=== PATIENT | male | born 1935 | race Caucasian/White ===

== ENCOUNTER 2020-12-19 04:13 | Inpatient (IN) | payer OTHER, MEDICARE, MEDICAID ==
[2020-12-19] MEDS ORDERED: cefTRIAXone 1 GM in Sodium Chloride 0.9% 100 ML IV ONE (05:03)
[2020-12-19] MEDS: Sodium Chloride 0.9% 10 ML Syringe FLUSH PRN ×8 (05:11→17:40)
--- NOTE | 2020-12-19 05:24 | EDM.PDOC ---
<Jose LuisVicki delaneyGet - Last Filed: 12/19/20 06:20> ED HPI GENERAL MEDICAL PROBLEM - General Chief Complaint: Respiratory Problem Stated Complaint: SOB Time Seen by Provider: 12/19/20 04:20 - Related Data Allergies Allergy/AdvReac Type Severity Reaction Status Date / Time No Known Allergies Allergy Verified 12/19/20 05:07 Home Meds: Home Meds Mirtazapine [Remeron] 30 mg PO BEDTIME 08/11/13 [History] Acetaminophen 650 mg PO Q12HR 12/19/20 [History] Budesonide [Pulmicort] 0.5 mg NEB Q4HR 12/19/20 [History] Doxycycline Hyclate 100 mg PO BID 12/19/20 [History] Furosemide [Lasix] 40 mg PO DAILY 12/19/20 [History] L.acidoph,Paracasei, B.lactis [Probiotic] 1 each PO DAILY 12/19/20 [History] Loperamide HCl [Imodium A-D] 2 - 4 mg PO ASDIRECTED PRN 12/19/20 [History] Morphine [Morphine 20 MG/ML Soln] 5 mg BUCCAL TID 12/19/20 [History] Morphine [Morphine 20 MG/ML Soln] 5 mg PO Q30M PRN 12/19/20 [History] Pectin [Throat Drops] 6 mg MM Q2HR PRN 12/19/20 [History] Potassium Chloride 10 meq PO DAILY 12/19/20 [History] Sennosides [Senna] 8.6 mg PO DAILY PRN 12/19/20 [History] Sodium Chloride 1 gm PO Q12HR 12/19/20 [History] Sodium Phosphate,[place]-Dibasic [Enema Ready To Use] 133 ml RC DAILY PRN 12/19/20 [History] Triamcinolone Acetonide [Triamcinolone Acetonide 0.1% Crm] 1 applic TOP TID PRN 12/19/20 [History] bisacodyL [Bisacodyl] 5 - 10 mg PO DAILY PRN 12/19/20 [History] cefTRIAXone [Rocephin] 1 gm IM DAILY 12/19/20 [History] polyethylene glycoL 3350 [MiraLAX] 17 gm PO Q2D 12/19/20 [History] predniSONE 5 mg PO DAILY 12/19/20 [History] predniSONE 20 mg PO DAILY 12/19/20 [History] Departure - Departure Disposition: Admitted As Inpatient 66 Clinical Impression: Pneumonia - Discharge Information <Gurpreet Weems - Last Filed: 12/19/20 08:28> ED HPI GENERAL MEDICAL PROBLEM - General Source of Information: Reports: Patient, EMS, Family, RN History Limitations: Reports: No Limitations - History of Present Illness INITIAL COMMENTS - FREE TEXT/NARRATIVE: Pt. presents to ER with decreased O2 saturation, decreased level of consciousness, shortness of breath, and fatigue. He is a resident at the [facility]. Pt. is currently being treated with IM rocephin, doxycycline, and kenalog for presumed pneumonia. Staff states that tonight he was taking his oxygen off. He is on O2 per NC at 3L/min. His RA O2 sat. tonight without O2 was 65%. Staff noted that his speech was garbled and he was resistive to evaluation. Daughter states that she talked to the patient yesterday and noticed that he sounded quite fatigued with slurred speech. She states that she has not been able to see him much due to the pandemic, but she states that she noticed he had facial droop at [facility]. She states that he has also been complaining of decreased function in his L hand, and stated that he has been having a hard time grasping. This was brought to the attention of staff of the halfway, and they stated to the daughter that they hadn't noticed this. Pt. has not had any head trauma. He is quite upset and resistive to care. Pt. was listed as a code 1 on his halfway chart. In talking with the daughter, she does not want CPR or intubation. Onset: Today Onset Date: 12/19/20 Location: Reports: Generalized Social & Family History - Tobacco Use Tobacco Use Status *Q: Unknown Ever Used Tobacco ED ROS GENERAL - Review of Systems Review Of Systems: See Below (Much of his ROS is unobtainable due to pt. current level of mentation.) Constitutional: Reports: Fever, Malaise, Weakness, Fatigue, Decreased Appetite HEENT: Reports: Other (L sided facial droop, noted by daughter several weeks ago.) Respiratory: Reports: Shortness of Breath, Cough, Other (See HPI) Cardiovascular: Reports: No Symptoms Endocrine: Reports: No Symptoms GI/Abdominal: Reports: No Symptoms : Reports: No Symptoms Musculoskeletal: Reports: No Symptoms Skin: Reports: No Symptoms Neurological: Reports: Other (L sided facial droop, problems using L side according to daughter.) Psychiatric: Reports: Agitation, Confusion Hematologic/Lymphatic: Reports: No Symptoms Immunologic: Reports: No Symptoms ED EXAM, GENERAL - Physical Exam Exam: See Below Exam Limited By: No Limitations General Appearance: Alert, WD/WN, No Apparent Distress Throat/Mouth: Normal Inspection Head: Atraumatic, Normocephalic Neck: Normal Inspection, Non-Tender Respiratory/Chest: No Accessory Muscle Use, Chest Non-Tender, Other (decreased BS with crackles bilaterally in the bases) Cardiovascular: Normal Peripheral Pulses, Regular Rate, Rhythm, No Edema, No Gallop, No JVD, No Murmur GI/Abdominal: Soft, Non-Tender, No Distention, No Mass (Male) Exam: Deferred Rectal (Males) Exam: Deferred Back Exam: Normal Inspection, Full Range of Motion Extremities: Non-Tender, No Pedal Edema Neurological: Other (Confused, L sided facial droop. No pronator drift. No drift in lower extremities.) Psychiatric: Anxious Skin Exam: Warm, Dry, Other (numerous actinic keratoses) Course - Vital Signs Last Recorded V/S: Last Vital Signs Temp 36.1 C 12/19/20 07:40 Pulse 71 12/19/20 07:15 Resp 16 12/19/20 07:33 BP 107/38 L 12/19/20 07:15 Pulse Ox 99 12/19/20 07:46 - Orders/Labs/Meds Orders: Active Orders 24 hr Category Date Time Status Cardiac Monitoring [RC] CONTINUOUS Care 12/19/20 04:29 Active EKG Documentation Completion [RC] ASDIRECTED Care 12/19/20 04:29 Active Oxygen Therapy [RC] PRN Care 12/19/20 04:29 Active Peripheral IV Care [RC] . DIRECTED Care 12/19/20 04:29 Active Chest 1V Frontal [CR] Stat Exams 12/19/20 04:29 Taken Head wo Cont [CT] Stat Exams 12/19/20 05:16 Taken CULTURE BLOOD [BC] Stat Lab 12/19/20 04:45 Received CULTURE BLOOD [BC] Stat Lab 12/19/20 04:45 Received CULTURE URINE [RM] Stat Lab 12/19/20 08:00 Received UA W/MICROSCOPIC [URIN] Stat Lab 12/19/20 08:00 Received Sodium Chloride 0.9% [Saline Flush] Med 12/19/20 04:27 Active 10 ml FLUSH ASDIRECTED PRN Blood Culture x2 Reflex Set [OM.PC] Stat Oth 12/19/20 04:29 Ordered Isolation [COMM] Routine Oth 12/19/20 04:32 Active Peripheral IV Insertion Adult [OM.PC] Routine Oth 12/19/20 04:29 Ordered EKG 12 Lead [EK] Stat Ther 12/19/20 04:27 Ordered Medication Orders Sodium Chloride (Sodium Chloride 0.9% 10 Ml Syringe) 10 ml FLUSH ASDIRECTED PRN PRN Reason: Keep Vein Open Last Admin: 12/19/20 07:17 Dose: 10 ml Documented by: Admin: 12/19/20 07:16 Dose: 10 ml Documented by: Admin: 12/19/20 05:11 Dose: 10 ml Documented by: NICOLE Labs: Laboratory Tests 12/19/20 12/19/20 12/19/20 Range/Units 04:51 04:51 04:51 WBC 9.7 (4.0-10.2) K/uL RBC 3.80 L (4.33-5.41) M/uL Hgb 12.0 L (13.1-16.8) g/dL Hct 39.8 (39.0-49.0) % MCV 104.7 H (84.0-98.0) fL MCH 31.6 (28.2-33.3) pg MCHC 30.2 L (31.7-36.0) g/dL RDW 13.1 (11.2-14.1) % Plt Count 209 (150-350) K/uL Neut % (Auto) 87.1 H (45.0-80.0) % Lymph % (Auto) 6.9 L (10.0-50.0) % [place] % (Auto) 5.7 (2.0-14.0) % Eos % (Auto) 0.2 (0.0-5.0) % Baso % (Auto) 0.1 (0.0-2.0) % Neut # (Auto) 8.43 H (1.40-7.00) K/uL Lymph # (Auto) 0.67 (0.50-3.50) K/uL [place] # (Auto) 0.55 (0.00-1.00) K/uL Eos # (Auto) 0.02 (0.00-0.50) K/uL Baso # (Auto) 0.01 (0.00-0.20) K/uL PT (9.5-12.0) SEC INR ABG pH (7.35-7.45) ABG pCO2 (35-45) mmHG ABG pO2 (80-105) mmHG ABG HCO3 (22-26) mmol/L ABG Total CO2 (23-27) mmol/L ABG O2 Saturation (95-98) % ABG Base Excess (-2-3) mmol/L O2 Delivery Device Sodium 140 (136-145) mmol/L Potassium 4.8 (3.5-5.1) mmol/L Chloride 97 L (98-107) mmol/L Carbon Dioxide 41.4 H* (21.0-32.0) mmol/L BUN 27 H (7-18) mg/dL Creatinine 0.67 (0.51-1.17) mg/dL Est Cr Clr Drug Dosing 72.74 mL/min Estimated GFR (MDRD) > 60 mL/min Glucose 152 H (70-99) mg/dL Lactic Acid 1.5 (0.4-2.0) mmol/L Calcium 9.3 (8.5-10.1) mg/dL Magnesium 1.9 (1.8-2.4) mg/dL Total Bilirubin 0.4 (0.2-1.0) mg/dL AST 14 L (15-37) U/L ALT 20 (12-78) U/L Alkaline Phosphatase 87 (46-116) IU/L Troponin I 0.000 (0.000-0.056) ng/mL C-Reactive Protein 11.6 H (<=0.9) mg/dL NT-Pro-B Natriuret Pep 298 H (0-125) pg/mL Total Protein 7.5 (6.4-8.2) g/dL Albumin 3.4 (3.4-5.0) g/dL SARS-CoV-2 RNA ([place]) (NEGATIVE) 12/19/20 12/19/2021 Range/Units 04:51 04:51 06:10 WBC (4.0-10.2) K/uL RBC (4.33-5.41) M/uL Hgb (13.1-16.8) g/dL Hct (39.0-49.0) % MCV (84.0-98.0) fL MCH (28.2-33.3) pg MCHC (31.7-36.0) g/dL RDW (11.2-14.1) % Plt Count (150-350) K/uL Neut % (Auto) (45.0-80.0) % Lymph % (Auto) (10.0-50.0) % [place] % (Auto) (2.0-14.0) % Eos % (Auto) (0.0-5.0) % Baso % (Auto) (0.0-2.0) % Neut # (Auto) (1.40-7.00) K/uL Lymph # (Auto) (0.50-3.50) K/uL [place] # (Auto) (0.00-1.00) K/uL Eos # (Auto) (0.00-0.50) K/uL Baso # (Auto) (0.00-0.20) K/uL PT 9.4 L (9.5-12.0) SEC INR 0.9 ABG pH 7.31 L (7.35-7.45) ABG pCO2 88 H* (35-45) mmHG ABG pO2 42 L* (80-105) mmHG ABG HCO3 43.7 H (22-26) mmol/L ABG Total CO2 43 H (23-27) mmol/L ABG O2 Saturation 68 L (95-98) % ABG Base Excess 13 H (-2-3) mmol/L O2 Delivery Device Nasal cannula Sodium (136-145) mmol/L Potassium (3.5-5.1) mmol/L Chloride (98-107) mmol/L Carbon Dioxide (21.0-32.0) mmol/L BUN (7-18) mg/dL Creatinine (0.51-1.17) mg/dL Est Cr Clr Drug Dosing mL/min Estimated GFR (MDRD) mL/min Glucose (70-99) mg/dL Lactic Acid (0.4-2.0) mmol/L Calcium (8.5-10.1) mg/dL Magnesium (1.8-2.4) mg/dL Total Bilirubin (0.2-1.0) mg/dL AST (15-37) U/L ALT (12-78) U/L Alkaline Phosphatase (46-116) IU/L Troponin I (0.000-0.056) ng/mL C-Reactive Protein (<=0.9) mg/dL NT-Pro-B Natriuret Pep (0-125) pg/mL Total Protein (6.4-8.2) g/dL Albumin (3.4-5.0) g/dL SARS-CoV-2 RNA ([place]) Negative (NEGATIVE) Meds: Medications Generic Name Dose Route Start Last Admin Trade Name Freq PRN Reason Stop Dose Admin Sodium Chloride 10 ml 12/19/20 04:27 12/19/20 07:17 Sodium Chloride 0.9% 10 Ml Syringe FLUSH 10 ml ASDIRECTED PRN Administration Keep Vein Open Discontinued Medications Generic Name Dose Route Start Last Admin Trade Name Freq PRN Reason Stop Dose Admin Haloperidol Lactate 1 mg 12/19/20 06:59 12/19/20 07:16 Haloperidol Lactate 5 Mg/Ml Sdv IVPUSH 12/19/20 07:00 1 mg ONETIME ONE Administration Ceftriaxone Sodium 1 gm/ 100 mls @ 200 mls/hr 12/19/20 05:03 12/19/20 05:10 Sodium Chloride IV 12/19/20 05:32 200 mls/hr ONETIME ONE Administration Lorazepam 0.5 mg 12/19/20 05:25 12/19/20 05:29 Lorazepam 2 Mg/Ml Sdv IVPUSH 12/19/20 05:26 0.5 mg ONETIME ONE Administration Lorazepam 1 mg 12/19/20 07:00 12/19/20 07:15 Lorazepam 2 Mg/Ml Sdv IVPUSH 12/19/20 07:01 1 mg ONETIME ONE Administration - Re-Assessments/Exams Free Text/Narrative Re-Assessment/Exam: Pt. was examined. Please see above. Pt. was exhibiting signs of stroke. It is unclear when specifically these symptoms started. Daughter reports facial droop over Easter and problems with L sided upper extremity function over a week ago. Stroke code was not called. Pt. was given 1000 mg rocephin IV (he had been given 1000mg IM at the halfway at 1999 this past evening. Pt. required a small dose of ativan for agitation to obtain a CT scan of his he ad. Discussed initial findings at length with daughter November prior to her arrival at [place] (she lives about an hour away in [place]). She has changed his code status to 2, with no intubation or CPR. Departure - Departure Time of Disposition: 06:00 Sepsis Event Note (ED) - Evaluation Sepsis Screening Result: Possible Severe Sepsis Risk - Focused Exam Vital Signs: Vital Signs Temp Temp Pulse Resp BP Pulse Ox Pulse Ox 12/19/20 07:46 99 12/19/20 07:40 36.1 C 97 12/19/20 07:33 16 94 L 12/19/20 07:30 98 12/19/20 07:29 98 12/19/20 07:15 71 20 107/38 L 91 L 12/19/20 06:41 99 132/58 L 88 L 12/19/20 06:00 89 22 H 143/72 H 92 L 12/19/20 05:45 85 127/91 H 90 L 12/19/20 04:15 36.2 C 89 25 H 136/59 L 99 - My Orders Last 24 Hours: My Active Orders 12/19/20 04:27 Sodium Chloride 0.9% [Saline Flush] 10 ml FLUSH ASDIRECTED PRN EKG 12 Lead [EK] Stat 12/19/20 04:29 Cardiac Monitoring [RC] CONTINUOUS EKG Documentation Completion [RC] ASDIRECTED Oxygen Therapy [RC] PRN Peripheral IV Care [RC] . DIRECTED Chest 1V Frontal [CR] Stat Blood Culture x2 Reflex Set [OM.PC] Stat Peripheral IV Insertion Adult [OM.PC] Routine 12/19/20 04:32 Isolation [COMM] Routine 12/19/20 04:45 CULTURE BLOOD [BC] Stat CULTURE BLOOD [BC] Stat 12/19/20 05:16 Head wo Cont [CT] Stat 12/19/20 08:00 CULTURE URINE [RM] Stat UA W/MICROSCOPIC [URIN] Stat - Assessment/Plan Admission H&P: Please use this note as an admission H&P Last 24 Hours: My Active Orders 12/19/20 04:27 Sodium Chloride 0.9% [Saline Flush] 10 ml FLUSH ASDIRECTED PRN EKG 12 Lead [EK] Stat 12/19/20 04:29 Cardiac Monitoring [RC] CONTINUOUS EKG Documentation Completion [RC] ASDIRECTED Oxygen Therapy [RC] PRN Peripheral IV Care [RC] . DIRECTED Chest 1V Frontal [CR] Stat Blood Culture x2 Reflex Set [OM.PC] Stat Peripheral IV Insertion Adult [OM.PC] Routine 12/19/20 04:32 Isolation [COMM] Routine 12/19/20 04:45 CULTURE BLOOD [BC] Stat CULTURE BLOOD [BC] Stat 12/19/20 05:16 Head wo Cont [CT] Stat 12/19/20 08:00 CULTURE URINE [RM] Stat UA W/MICROSCOPIC [URIN] Stat Plan: Pt. care was assumed at [address] Clarke. Please refer to his note regarding CT report, final lab findings, and final disposition of this patient.
[2020-12-19] MEDS ORDERED: LORazepam 2 MG/ML SDV IVPUSH ONE ×2 (05:25→07:00)
[2020-12-19 05:39] LABS: CHLORIDE,CL 97 mmol/L (98-107); SODIUM,NA 140 mmol/L (136-145)
--- NOTE | 2020-12-19 06:38 | PCM.SN.2 ---
- Free Text/Narrative Note: The patient's care was transferred to n[place] shortly prior to admission. CT scan of the head without contrast shows no acute changes consistent with CVA, cerebral hemorrhage, etc. Chronic microvascular changes were noted. Various therapeutic options were once again discussed with the patient's daughter, November, who wishes to maintain patient's comfort care status with no transfer to [place] for further evaluation, including MRI of the brain, hospitalization at the [facility] in [place], etc. Emergency room note from Gurpreet Weems, still needs to be completed, however history, physical exam, blood work, etc. were reviewed by me prior to patient's admission. 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 Mild left lower lobe atelectasis versus beginning pulmonary infiltrates. Patient will be admitted to inpatient/acute care with initiation of IV Lasix therapy, additional IV Cipro therapy, etc. Note that the patient refuses to keep his telemetry on with this to be discontinued at this time. The patient's daughter is in agreement with this treatment plan. Vital signs and clinical exam were stable at time of admission.
[2020-12-19] MEDS ORDERED: Haloperidol Lactate 5 MG/ML SDV IVPUSH ONE (06:59)
--- NOTE | 2020-12-19 08:27 | EDM.PDOC ---
ED HPI GENERAL MEDICAL PROBLEM - General Chief Complaint: Respiratory Problem Stated Complaint: SOB Time Seen by Provider: 12/19/20 06:10 Source of Information: Reports: Patient, EMS, Family, RN History Limitations: Reports: No Limitations - History of Present Illness INITIAL COMMENTS - FREE TEXT/NARRATIVE: Pt. presents to ER with decreased O2 saturation, decreased level of con sciousness, shortness of breath, and fatigue. He is a resident at the [facility]. Pt. is currently being treated with IM rocephin, doxycycline, and kenalog for presumed pneumonia. Staff states that tonight he was taking his oxygen off. He is on O2 per NC at 3L/min. His RA O2 sat. tonight without O2 was 65%. Staff noted that his speech was garbled and he was resistive to evaluation. Daughter states that she talked to the patient yesterday and noticed that he sounded quite fatigued with slurred speech. She states that she has not been able to see him much due to the pandemic, but she states that she noticed he had facial droop at [facility]. She states that he has also been complaining of decreased function in his L hand, and stated that he has been having a hard time grasping. This was brought to the attention of staff [facility], and they stated to the daughter that they hadn't noticed this. Pt. has not had any head trauma. He is quite upset and resistive to care. Pt. was listed as a code 1 on his [facility]iary chart. In talking with the daughter, she does not want CPR or intubation. Onset: Today Onset Date: 12/19/20 Location: Reports: Generalized - Related Data Allergies Allergy/AdvReac Type Severity Reaction Status Date / Time No Known Allergies Allergy Verified 12/19/20 05:07 Home Meds: Home Meds Mirtazapine [Remeron] 30 mg PO BEDTIME 08/11/13 [History] Acetaminophen 650 mg PO Q12HR 12/19/20 [History] Budesonide [Pulmicort] 0.5 mg NEB Q4HR 12/19/20 [History] Doxycycline Hyclate 100 mg PO BID 12/19/20 [History] Furosemide [Lasix] 40 mg PO DAILY 12/19/20 [History] L.acidoph,Paracasei, B.lactis [Probiotic] 1 each PO DAILY 12/19/20 [History] Loperamide HCl [Imodium A-D] 2 - 4 mg PO ASDIRECTED PRN 12/19/20 [History] Morphine [Morphine 20 MG/ML Soln] 5 mg BUCCAL TID 12/19/20 [History] Morphine [Morphine 20 MG/ML Soln] 5 mg PO Q30M PRN 12/19/20 [History] Pectin [Throat Drops] 6 mg MM Q2HR PRN 12/19/20 [History] Potassium Chloride 10 meq PO DAILY 12/19/20 [History] Sennosides [Senna] 8.6 mg PO DAILY PRN 12/19/20 [History] Sodium Chloride 1 gm PO Q12HR 12/19/20 [History] Sodium Phosphate,Eaton-Dibasic [Enema Ready To Use] 133 ml RC DAILY PRN 12/19/20 [History] Triamcinolone Acetonide [Triamcinolone Acetonide 0.1% Crm] 1 applic TOP TID PRN 12/19/20 [History] bisacodyL [Bisacodyl] 5 - 10 mg PO DAILY PRN 12/19/20 [History] cefTRIAXone [Rocephin] 1 gm IM DAILY 12/19/20 [History] polyethylene glycoL 3350 [MiraLAX] 17 gm PO Q2D 12/19/20 [History] predniSONE 5 mg PO DAILY 12/19/20 [History] predniSONE 20 mg PO DAILY 12/19/20 [History] Social & Family History - Tobacco Use Tobacco Use Status *Q: Unknown Ever Used Tobacco ED ROS GENERAL - Review of Systems Review Of Systems: Comprehensive ROS is negative, except as noted in HPI. Reason Not Obtained: As obtained by Gurpreet Weems PA-C ED EXAM, GENERAL - Physical Exam Exam: See Below (Exam by Gurpreet Weems PA-C) Free Text/Narrative:: Pt. presents to ER with decreased O2 saturation, decreased level of consci ousness, shortness of breath, and fatigue. He is a resident at the [facility]. Pt. is currently being treated with IM rocephin, doxycycline, and kenalog for presumed pneumonia. Staff states that tonight he was taking his oxygen off. He is on O2 per [place] at 3L/min. His RA O2 sat. tonight without O2 was 65%. Staff noted that his speech was garbled and he was resistive to evaluation. Daughter states that she talked to the patient yesterday and noticed that he sounded quite fatigued with slurred speech. She states that she has not been able to see him much due to the pandemic, but she states that she noticed he had facial droop at [place]. She states that he has also been complaining of decreased function in his L hand, and stated that he has been having a hard time grasping. This was brought to the attention of staff of the penitentiary, and they stated to the daughter that they hadn't noticed this. Pt. has not had any head trauma. He is quite upset and resistive to care. Pt. was listed as a code 1 on his penitentiary chart. In talking with the daughter, she does not want CPR or intubation. Exam Limited By: No Limitations General Appearance: Alert, WD/WN, No Apparent Distress Throat/Mouth: Normal Inspection Head: Atraumatic, Normocephalic Neck: Normal Inspection, Non-Tender Respiratory/Chest: No Accessory Muscle Use, Chest Non-Tender, Other (decreased BS with crackles bilaterally in the bases) Cardiovascular: Normal Peripheral Pulses, Regular Rate, Rhythm, No Edema, No Gallop, No JVD, No Murmur GI/Abdominal: Soft, Non-Tender, No Distention, No Mass Back Exam: Normal Inspection, Full Range of Motion Extremities: Non-Tender, No Pedal Edema Neurological: Other (Confused, L sided facial droop. No pronator drift. No drift in lower extremities.) Psychiatric: Anxious Skin Exam: Warm, Dry, Other (numerous actinic keratoses) Course - Vital Signs Last Recorded V/S: Last Vital Signs Temp 36.1 C 12/19/20 07:40 Pulse 71 12/19/20 07:15 Resp 16 12/19/20 07:33 BP 107/38 L 12/19/20 07:15 Pulse Ox 99 12/19/20 07:46 Vital Signs - 24 hr 12/19/20 12/19/20 12/19/20 04:15 05:45 06:00 Temperature [ 36.2 C Axillary] Temperature [ Temporal] Pulse, 89 85 89 Peripheral [ Pulse Oximetry] Respiratory 25 H 22 H Rate Blood Pressure 136/59 L 127/91 H 143/72 H [Right Upper Arm] O2 Sat by Pulse 99 90 L 92 L Oximetry O2 Sat by Pulse Oximetry [ Nasal Cannula] 12/19/20 12/19/20 12/19/20 06:41 07:15 07:29 Temperature [ Axillary] Temperature [ Temporal] Pulse, 99 71 Peripheral [ Pulse Oximetry] Respiratory 20 Rate Blood Pressure 132/58 L 107/38 L [Right Upper Arm] O2 Sat by Pulse 88 L 91 L 98 Oximetry O2 Sat by Pulse Oximetry [ Nasal Cannula] 12/19/20 12/19/20 12/19/20 07:30 07:33 07:40 Temperature [ Axillary] Temperature [ 36.1 C Temporal] Pulse, Peripheral [ Pulse Oximetry] Respiratory 16 Rate Blood Pressure [Right Upper Arm] O2 Sat by Pulse 98 94 L 97 Oximetry O2 Sat by Pulse Oximetry [ Nasal Cannula] 12/19/20 07:46 Temperature [ Axillary] Temperature [ Temporal] Pulse, Peripheral [ Pulse Oximetry] Respiratory Rate Blood Pressure [Right Upper Arm] O2 Sat by Pulse Oximetry O2 Sat by Pulse 99 Oximetry [ Nasal Cannula] - Orders/Labs/Meds Orders: Active Orders 24 hr Category Date Time Status EKG Documentation Completion [RC] ASDIRECTED Care 12/19/20 04:29 Active Peripheral IV Care [RC] . DIRECTED Care 12/19/20 04:29 Active Chest 1V Frontal [CR] Stat Exams 12/19/20 04:29 Taken Head wo Cont [CT] Stat Exams 12/19/20 05:16 Taken CULTURE BLOOD [BC] Stat Lab 12/19/20 04:45 Received CULTURE BLOOD [BC] Stat Lab 12/19/20 04:45 Received CULTURE URINE [RM] Stat Lab 12/19/20 08:00 Received Sodium Chloride 0.9% [Saline Flush] Med 12/19/20 04:27 Active 10 ml FLUSH ASDIRECTED PRN Blood Culture x2 Reflex Set [OM.PC] Stat Oth 12/19/20 04:29 Ordered Isolation [COMM] Routine Oth 12/19/20 04:32 Active Peripheral IV Insertion Adult [OM.PC] Routine Oth 12/19/20 04:29 Ordered EKG 12 Lead [EK] Stat Ther 12/19/20 04:27 Ordered Medication Orders Mirtazapine (Mirtazapine 30 Mg Tab) 30 mg PO BEDTIME JB Non-Formulary Medication (L.Acidoph,ParacaseiLindaLactis [Probiotic]) 1 each PO DAILY [facility] Non-Formulary Medication (Sennosides [Senna]) 8.6 mg PO DAILY PRN PRN Reason: Constipation Polyethylene Glycol (Polyethylene Glycol 3350 Powder 17 Gm Packet) 17 gm PO Q2D JB Prednisone (Prednisone 20 Mg Tab) 20 mg PO DAILY JB Sodium Chloride (Sodium Chloride 0.9% 10 Ml Syringe) 10 ml FLUSH ASDIRECTED PRN PRN Reason: Keep Vein Open Last Admin: 12/19/20 07:17 Dose: 10 ml Documented by: Admin: 12/19/20 07:16 Dose: 10 ml Documented by: Admin: 12/19/20 05:11 Dose: 10 ml Documented by: NICOLE Sodium Chloride (Sodium Chloride 1 Gm Tab) 1 gm PO Q12HR JB Triamcinolone Acetonide (Triamcinolone Acetonide 0.1% Crm 15 Gm Tube) gm TOP TID PRN PRN Reason: Itching Labs: Laboratory Tests 12/19/20 12/19/20 12/19/20 Range/Units 04:51 04:51 04:51 WBC 9.7 (4.0-10.2) K/uL RBC 3.80 L (4.33-5.41) M/uL Hgb 12.0 L (13.1-16.8) g/dL Hct 39.8 (39.0-49.0) % MCV 104.7 H (84.0-98.0) fL MCH 31.6 (28.2-33.3) pg MCHC 30.2 L (31.7-36.0) g/dL RDW 13.1 (11.2-14.1) % Plt Count 209 (150-350) K/uL Neut % (Auto) 87.1 H (45.0-80.0) % Lymph % (Auto) 6.9 L (10.0-50.0) % Eaton % (Auto) 5.7 (2.0-14.0) % Eos % (Auto) 0.2 (0.0-5.0) % Baso % (Auto) 0.1 (0.0-2.0) % Neut # (Auto) 8.43 H (1.40-7.00) K/uL Lymph # (Auto) 0.67 (0.50-3.50) K/uL Eaton # (Auto) 0.55 (0.00-1.00) K/uL Eos # (Auto) 0.02 (0.00-0.50) K/uL Baso # (Auto) 0.01 (0.00-0.20) K/uL PT (9.5-12.0) SEC INR ABG pH (7.35-7.45) ABG pCO2 (35-45) mmHG ABG pO2 (80-105) mmHG ABG HCO3 (22-26) mmol/L ABG Total CO2 (23-27) mmol/L ABG O2 Saturation (95-98) % ABG Base Excess (-2-3) mmol/L O2 Delivery Device Sodium 140 (136-145) mmol/L Potassium 4.8 (3.5-5.1) mmol/L Chloride 97 L (98-107) mmol/L Carbon Dioxide 41.4 H* (21.0-32.0) mmol/L BUN 27 H (7-18) mg/dL Creatinine 0.67 (0.51-1.17) mg/dL Est Cr Clr Drug Dosing 72.74 mL/min Estimated GFR (MDRD) > 60 mL/min Glucose 152 H (70-99) mg/dL Lactic Acid 1.5 (0.4-2.0) mmol/L Calcium 9.3 (8.5-10.1) mg/dL Magnesium 1.9 (1.8-2.4) mg/dL Total Bilirubin 0.4 (0.2-1.0) mg/dL AST 14 L (15-37) U/L ALT 20 (12-78) U/L Alkaline Phosphatase 87 (46-116) IU/L Troponin I 0.000 (0.000-0.056) ng/mL C-Reactive Protein 11.6 H (<=0.9) mg/dL NT-Pro-B Natriuret Pep 298 H (0-125) pg/mL Total Protein 7.5 (6.4-8.2) g/dL Albumin 3.4 (3.4-5.0) g/dL Specimen Type Urine Color Urine Appearance Urine pH (5.0-9.0) Ur Specific [place] (1.005-1.030) Urine Protein (NEGATIVE) mg/dL Urine Glucose (UA) (NEGATIVE) mg/dL Urine Ketones (NEGATIVE) mg/dL Urine Occult Blood (NEGATIVE) Urine Nitrite (NEGATIVE) Urine Bilirubin (NEGATIVE) Urine Urobilinogen (0.2-1.0) E.U./dL Ur Leukocyte Esterase (NEGATIVE) Urine RBC /HPF Urine WBC /HPF Ur Epithelial Cells /LPF Urine Bacteria (NONE TO FEW) /HPF SARS-CoV-2 RNA (SOLOMON) (NEGATIVE) 12/19/20 12/19/20 12/19/20 Range/Units 04:51 04:51 06:10 WBC (4.0-10.2) K/uL RBC (4.33-5.41) M/uL Hgb (13.1-16.8) g/dL Hct (39.0-49.0) % MCV (84.0-98.0) fL MCH (28.2-33.3) pg MCHC (31.7-36.0) g/dL RDW (11.2-14.1) % Plt Count (150-350) K/uL Neut % (Auto) (45.0-80.0) % Lymph % (Auto) (10.0-50.0) % Eaton % (Auto) (2.0-14.0) % Eos % (Auto) (0.0-5.0) % Baso % (Auto) (0.0-2.0) % Neut # (Auto) (1.40-7.00) K/uL Lymph # (Auto) (0.50-3.50) K/uL Eaton # (Auto) (0.00-1.00) K/uL Eos # (Auto) (0.00-0.50) K/uL Baso # (Auto) (0.00-0.20) K/uL PT 9.4 L (9.5-12.0) SEC INR 0.9 ABG pH 7.31 L (7.35-7.45) ABG pCO2 88 H* (35-45) mmHG ABG pO2 42 L* (80-105) mmHG ABG HCO3 43.7 H (22-26) mmol/L ABG Total CO2 43 H (23-27) mmol/L ABG O2 Saturation 68 L (95-98) % ABG Base Excess 13 H (-2-3) mmol/L O2 Delivery Device Nasal cannula Sodium (136-145) mmol/L Potassium (3.5-5.1) mmol/L Chloride (98-107) mmol/L Carbon Dioxide (21.0-32.0) mmol/L BUN (7-18) mg/dL Creatinine (0.51-1.17) mg/dL Est Cr Clr Drug Dosing mL/min Estimated GFR (MDRD) mL/min Glucose (70-99) mg/dL Lactic Acid (0.4-2.0) mmol/L Calcium (8.5-10.1) mg/dL Magnesium (1.8-2.4) mg/dL Total Bilirubin (0.2-1.0) mg/dL AST (15-37) U/L ALT (12-78) U/L Alkaline Phosphatase (46-116) IU/L Troponin I (0.000-0.056) ng/mL C-Reactive Protein (<=0.9) mg/dL NT-Pro-B Natriuret Pep (0-125) pg/mL Total Protein (6.4-8.2) g/dL Albumin (3.4-5.0) g/dL Specimen Type Urine Color Urine Appearance Urine pH (5.0-9.0) Ur Specific [place] (1.005-1.030) Urine Protein (NEGATIVE) mg/dL Urine Glucose (UA) (NEGATIVE) mg/dL Urine Ketones (NEGATIVE) mg/dL Urine Occult Blood (NEGATIVE) Urine Nitrite (NEGATIVE) Urine Bilirubin (NEGATIVE) Urine Urobilinogen (0.2-1.0) E.U./dL Ur Leukocyte Esterase (NEGATIVE) Urine RBC /HPF Urine WBC /HPF Ur Epithelial Cells /LPF Urine Bacteria (NONE TO FEW) /HPF SARS-CoV-2 RNA ([place]) Negative (NEGATIVE) 12/19/20 Range/Units 08:00 WBC (4.0-10.2) K/uL RBC (4.33-5.41) M/uL Hgb (13.1-16.8) g/dL Hct (39.0-49.0) % MCV (84.0-98.0) fL MCH (28.2-33.3) pg MCHC (31.7-36.0) g/dL RDW (11.2-14.1) % Plt Count (150-350) K/uL Neut % (Auto) (45.0-80.0) % Lymph % (Auto) (10.0-50.0) % Eaton % (Auto) (2.0-14.0) % Eos % (Auto) (0.0-5.0) % Baso % (Auto) (0.0-2.0) % Neut # (Auto) (1.40-7.00) K/uL Lymph # (Auto) (0.50-3.50) K/uL Eaton # (Auto) (0.00-1.00) K/uL Eos # (Auto) (0.00-0.50) K/uL Baso # (Auto) (0.00-0.20) K/uL PT (9.5-12.0) SEC INR ABG pH (7.35-7.45) ABG pCO2 (35-45) mmHG ABG pO2 (80-105) mmHG ABG HCO3 (22-26) mmol/L ABG Total CO2 (23-27) mmol/L ABG O2 Saturation (95-98) % ABG Base Excess (-2-3) mmol/L O2 Delivery Device Sodium (136-145) mmol/L Potassium (3.5-5.1) mmol/L Chloride (98-107) mmol/L Carbon Dioxide (21.0-32.0) mmol/L BUN (7-18) mg/dL Creatinine (0.51-1.17) mg/dL Est Cr Clr Drug Dosing mL/min Estimated GFR (MDRD) mL/min Glucose (70-99) mg/dL Lactic Acid (0.4-2.0) mmol/L Calcium (8.5-10.1) mg/dL Magnesium (1.8-2.4) mg/dL Total Bilirubin (0.2-1.0) mg/dL AST (15-37) U/L ALT (12-78) U/L Alkaline Phosphatase (46-116) IU/L Troponin I (0.000-0.056) ng/mL C-Reactive Protein (<=0.9) mg/dL NT-Pro-B Natriuret Pep (0-125) pg/mL Total Protein (6.4-8.2) g/dL Albumin (3.4-5.0) g/dL Specimen Type Urincath Urine Color Rosalia Urine Appearance Slightly cloudy Urine pH 6.0 (5.0-9.0) Ur Specific [place] 1.025 (1.005-1.030) Urine Protein 30 H (NEGATIVE) mg/dL Urine Glucose (UA) Negative (NEGATIVE) mg/dL Urine Ketones Trace H (NEGATIVE) mg/dL Urine Occult Blood Negative (NEGATIVE) Urine Nitrite Negative (NEGATIVE) Urine Bilirubin Negative (NEGATIVE) Urine Urobilinogen 0.2 (0.2-1.0) E.U./dL Ur Leukocyte Esterase Negative (NEGATIVE) Urine RBC Not seen /HPF Urine WBC Not seen /HPF Ur Epithelial Cells Not seen /LPF Urine Bacteria Not seen (NONE TO FEW) /HPF SARS-CoV-2 RNA ([place]) (NEGATIVE) Meds: Medications Generic Name Dose Route Start Last Admin Trade Name Freq PRN Reason Stop Dose Admin Mirtazapine 30 mg 12/19/20 20:00 Mirtazapine 30 Mg Tab PO BEDTIME JB Non-Formulary Medication 1 each 12/19/20 08:45 L.Acidoph,Paracasei, B.Lactis [Probiotic] PO DAILY JB Non-Formulary Medication 8.6 mg 12/19/20 08:42 Sennosides [Senna] PO DAILY PRN Constipation Polyethylene Glycol 17 gm 12/19/20 08:42 Polyethylene Glycol 3350 Powder 17 Gm Packet PO Q2D JB Prednisone 20 mg 12/20/20 08:00 Prednisone 20 Mg Tab PO DAILY JB Sodium Chloride 10 ml 12/19/20 04:27 12/19/20 07:17 Sodium Chloride 0.9% 10 Ml Syringe FLUSH 10 ml ASDIRECTED PRN Administration Keep Vein Open Sodium Chloride 1 gm 12/19/20 20:00 Sodium Chloride 1 Gm Tab PO Q12HR [facility] Triamcinolone Acetonide gm 12/19/20 08:42 Triamcinolone Acetonide 0.1% Crm 15 Gm Tube TOP TID PRN Itching Discontinued Medications Generic Name Dose Route Start Last Admin Trade Name Freq PRN Reason Stop Dose Admin Haloperidol Lactate 1 mg 12/19/20 06:59 12/19/20 07:16 Haloperidol Lactate 5 Mg/Ml Sdv IVPUSH 12/19/20 07:00 1 mg ONETIME ONE Administration Ceftriaxone Sodium 1 gm/ 100 mls @ 200 mls/hr 12/19/20 05:03 12/19/20 05:10 Sodium Chloride IV 12/19/20 05:32 200 mls/hr ONETIME ONE Administration Lorazepam 0.5 mg 12/19/20 05:25 12/19/20 05:29 Lorazepam 2 Mg/Ml Sdv IVPUSH 12/19/20 05:26 0.5 mg ONETIME ONE Administration Lorazepam 1 mg 12/19/20 07:00 12/19/20 07:15 Lorazepam 2 Mg/Ml Sdv IVPUSH 12/19/20 07:01 1 mg ONETIME ONE Administration - Radiology Interpretation Free Text/Narrative:: See simple provider note Departure - Departure Time of Disposition: 08:20 Disposition: Admitted As Inpatient 66 Clinical Impression: COPD, Moderate chronic obstructive pulmonary disease, Confusion, Need for comfort care, Macrocytic anemia Pneumonia Qualifiers: Pneumonia type: due to unspecified organism Laterality: left Lung location: lower lobe of lung Qualified Code(s): J18.9 - Pneumonia, unspecified organism CHF (congestive heart failure) Qualifiers: Heart failure type: unspecified Heart failure chronicity: acute Qualified Code(s): I50.9 - Heart failure, unspecified - Discharge Information *PRESCRIPTION DRUG MONITORING PROGRAM REVIEWED*: Not Applicable *COPY OF PRESCRIPTION DRUG MONITORING REPORT IN PATIENT VIKRAM: Not Applicable Sepsis Event Note (ED) - Evaluation Sepsis Screening Result: No Definite Risk - Focused Exam Vital Signs: Vital Signs Temp Temp Pulse Resp BP Pulse Ox Pulse Ox 12/19/20 07:46 99 12/19/20 07:40 36.1 C 97 12/19/20 07:33 16 94 L 12/19/20 07:30 98 12/19/20 07:29 98 12/19/20 07:15 71 20 107/38 L 91 L 12/19/20 06:41 99 132/58 L 88 L 12/19/20 06:00 89 22 H 143/72 H 92 L 12/19/20 05:45 85 127/91 H 90 L 12/19/20 04:15 36.2 C 89 25 H 136/59 L 99 - Problem List & Annotations (1) Pneumonia SNOMED Code(s): 487340677 Code(s): J18.9 - PNEUMONIA, UNSPECIFIED ORGANISM Status: Acute Priority: High Current Visit: Yes Onset Date: ~12/19/20 Annotation/Comment:: Note previously suspected pneumonia with previous IM Rocephin and oral doxycycline therapy. Additional IV Rocephin given in the emergency room. Patient will receive IV Rocephin, IV Cipro, and IV Flagyl therapy after admission. Attempt to obtain a sputum specimen for culture and sensitivity, however this will be difficult with this patient. Prognosis is extremely guarded. No direct clinical evidence of sepsis with no fever, leukocytosis, lactic acid elevation, etc. Qualifiers: Pneumonia type: due to unspecified organism Laterality: left Lung location: lower lobe of lung Qualified Code(s): J18.9 - Pneumonia, unspecified organism (2) Need for comfort care SNOMED Code(s): 160262646, 326411990 Code(s): IXR8931 - Status: Acute Priority: High Current Visit: Yes Onset Date: 12/19/20 Annotation/Comment:: Initially patient was a full code, however per request of the patient's daughter, November, the patient was placed on comfort care/NO CODE STATUS, including no further transfer to the [facility], etc.. The patient did become extremely agitated in the emergency room and did require IV Ativan and IV Haldol therapy, which will be continued for patient safety and comfort. Secondary to multiple healthcare issues as above his overall prognosis is extremely guarded with patient possibly not surviving this hospitalization. His daughter is aware of this poor prognosis. (3) CHF (congestive heart failure) SNOMED Code(s): 79405976 Code(s): I50.9 - HEART FAILURE, UNSPECIFIED Status: Acute Priority: High Current Visit: Yes Onset Date: 12/19/20 Annotation/Comment:: Patient is a poor historian with no direct evidence of chest pain or anginal type symptoms. Cardiac enzymes will be repeated in the a.m. Changed from oral to IV Lasix therapy with Hunter catheter therapy as needed for accurate I's and O's. Secondary to comfort care status no further work-up, including echocardiogram, etc. Prognosis extremely guarded. Consider MAYLIN inhibitor therapy once patient's response to IV Lasix has been determined. Qualifiers: Heart failure type: unspecified Heart failure chronicity: acute Qualified Code(s): I50.9 - Heart failure, unspecified (4) COPD, Moderate chronic obstructive pulmonary disease SNOMED Code(s): 782013641 Code(s): J44.9 - CHRONIC OBSTRUCTIVE PULMONARY DISEASE, UNSPECIFIED Status: Chronic Priority: High Current Visit: Yes Annotation/Comment:: Mild COPD exacerbation secondary to patient's current probable pneumonia as above. Patient was agitated and needs sedation and will likely not be able to tolerate inhaler therapy. Isolation precautions with initiation of DuoNeb nebulizer treatments, etc. His Pulmicort nebulizer treatments will be held for now secondary to current high-dose oral steroids. His COVID-19 rapid test was negative, although minimize staff exposure to nebulizer therapy. Attempt incentive spirometry, although this will be difficult with this patient. The patient is steroid and O2 dependent with significant hypoxia on room air prior to patient's transfer. Note additional hypercapnia as per ABGs with attempts to decrease his oxygen requirement at this time. DuoNeb (5) Confusion SNOMED Code(s): 956541282 Code(s): R41.0 - DISORIENTATION, UNSPECIFIED Status: Acute Priority: High Current Visit: Yes Onset Date: ~12/19/20 Annotation/Comment:: Confusion secondary either to recent CVA versus current infection. Note negative CT scan of the head as above. Per his daughter's request no further work-up including hospital transfer for MRI of the brain, etc.. Vitamin B12 level, TSH, etc. to be conducted with next set of blood work. Prognosis extremely guarded. Negative UA. (6) Macrocytic anemia SNOMED Code(s): 39192734 Code(s): D53.9 - NUTRITIONAL ANEMIA, UNSPECIFIED Status: Acute Priority: High Current Visit: Yes Onset Date: ~12/19/20 Annotation/Comment:: Further work-up with blood work in the a.m., including vitamin B12 level, etc. - Problem List Review Problem List Initiated/Reviewed/Updated: Yes - Assessment/Plan Admission H&P: Please use this note as an admission H&P Assessment:: As above Plan: As above. Extensive precautions were given to the patient's daughter, who is in agreement with the treatment plan. The patient will require about 3-4 days of inpatient/acute care secondary to multiple health problems as above.
[2020-12-19] MEDS ORDERED: Sennosides 8.6 MG Tab PO PRN (08:42)
[2020-12-19] MEDS ORDERED: Triamcinolone Acetonide 0.1% Crm 15 GM Tube TOP PRN (08:42)
[2020-12-19] MEDS ORDERED: Lactobacillus Rhamnosus GG (Probiotic) Cap PO SCH (08:45)
[2020-12-19] MEDS ORDERED: Polyethylene Glycol 3350 Powder 17 GM Packet PO SCH (09:00)
[2020-12-19] MEDS ORDERED: Acetaminophen 325 MG Tab PO PRN (09:12)
[2020-12-19] MEDS ORDERED: Albuterol/Ipratropium 3.0-0.5 MG/3 ML Neb Soln NEB PRN (09:12)
[2020-12-19] MEDS ORDERED: Sodium Chloride 0.9% 10 ML Syringe FLUSH SCH (09:15)
[2020-12-19] MEDS ORDERED: Furosemide 40 MG/4 ML VIAL IVPUSH SCH (09:30)
[2020-12-19] MEDS: metroNIDAZOLE/Normal Saline 500 MG in Premix Bag 1 BAG IV SCH ×2 (10:27→17:36)
[2020-12-19] MEDS: Bacitracin/Neomycin/Polymyxin B Oint 0.9 GM U/D Packet TOP SCH (11:47)
[2020-12-19] MEDS: Levofloxacin/Dextrose 5%-Water 500 MG in Premix Bag 1 BAG IV SCH (11:52)
[2020-12-19] MEDS: LORazepam 1 MG Tab PO SCH ×3 (12:45→19:44)
[2020-12-19] MEDS: Albuterol/Ipratropium 3.0-0.5 MG/3 ML Neb Soln NEB SCH ×2 (13:20→21:30)
[2020-12-19] MEDS: Enoxaparin 30 MG/0.3 ML Syringe SUBCUT SCH (14:00)
[2020-12-19] MEDS: cefTRIAXone 1 GM in Sodium Chloride 0.9% 100 ML IV SCH (17:06)
[2020-12-19] MEDS: Albuterol 0.083% 2.5 MG/3 ML Neb Soln NEB PRN ×2 (17:36→23:50)
[2020-12-19] MEDS ORDERED: Potassium Chloride 20 MEQ Tab.ER PO SCH (18:00)
[2020-12-19] MEDS ORDERED: Dextromethorphan/guaiFENesin 600-30 MG Tab.ER PO SCH (18:00)
[2020-12-19] MEDS ORDERED: Bisacodyl 10 MG Supp RECTAL PRN (19:52)
[2020-12-19] MEDS ORDERED: methylPREDNISolone Sodium Succinate 125 MG/2 ML SDV IVPUSH ONE (20:00)
[2020-12-19] MEDS ORDERED: Mirtazapine 30 MG Tab PO SCH (20:00)
[2020-12-19] MEDS ORDERED: Sodium Chloride 1 GM Tab PO SCH (20:00)
[2020-12-19] MEDS: Sodium Chloride 0.9% 10 ML Syringe FLUSH SCH (21:30)
[2020-12-19] MEDS: LORazepam 2 MG/ML SDV IVPUSH PRN (23:51)
[2020-12-20] MEDS: metroNIDAZOLE/Normal Saline 500 MG in Premix Bag 1 BAG IV SCH ×3 (00:36→17:02)
[2020-12-20] MEDS: Sodium Chloride 0.9% 10 ML Syringe FLUSH PRN ×7 (00:37→19:27)
[2020-12-20] MEDS: Albuterol/Ipratropium 3.0-0.5 MG/3 ML Neb Soln NEB SCH ×4 (02:23→19:22)
[2020-12-20] MEDS: LORazepam 2 MG/ML SDV IVPUSH PRN ×6 (03:39→19:25)
[2020-12-20] MEDS: cefTRIAXone 1 GM in Sodium Chloride 0.9% 100 ML IV SCH (03:59)
[2020-12-20] MEDS: Bacitracin/Neomycin/Polymyxin B Oint 0.9 GM U/D Packet TOP SCH (07:39)
[2020-12-20] MEDS: Acetaminophen 650 MG Supp RECTAL PRN ×2 (07:39→19:26)
[2020-12-20] MEDS ORDERED: D5 1/2 NS w/ 20 mEq/L KCl 1,000 ML IV SCH (07:45)
[2020-12-20] MEDS ORDERED: predniSONE 20 MG Tab PO SCH (08:00)
[2020-12-20] MEDS ORDERED: Sodium Chloride 0.9% Inhalation Soln 3 ML Neb INH PRN (09:00)
[2020-12-20 09:06] LABS: CHLORIDE,CL 99 mmol/L (98-107); SODIUM,NA 141 mmol/L (136-145)
[2020-12-20] MEDS ORDERED: Furosemide 40 MG/4 ML VIAL IVPUSH SCH (09:30)
--- NOTE | 2020-12-20 09:34 | PCM.PN ---
- General Info Date of Service: 12/20/20 Admission Dx/Problem (Free Text): 1. Aspiration pneumonia 2. CHF 3. Confusion with probable CVA 4. COPD Functional Status: Reports: Pain Controlled. Denies: Tolerating Diet (Attempt with thickened liquid resulted in aspiration with patient not able to tolerate diet or taking oral medications, which were discontinued on 12/19), New Symptoms, Incentive Spirometry (Unable to perform) Pain Score: 0 (Appears comfortable unable to rate) - Review of Systems General: Reports: Fever, Weakness (Left hemiparesisstable), Chills, Night Sweats. Denies: Appetite (Feels hungry however note aspiration as above) HEENT: Reports: No Symptoms Pulmonary: Reports: Shortness of Breath, Cough. Denies: Sputum, Hemoptysis, Wheezing Cardiovascular: Reports: Palpitations. Denies: Edema Gastrointestinal: Reports: No Symptoms Genitourinary: Reports: Incontinence Musculoskeletal: Reports: No Symptoms Skin: Reports: Bruising. Denies: Diaphoresis Neurological: Reports: Confusion (Stable since admission), Difficulty Walking Psychiatric: Reports: Confusion (As above), Agitation (Occasional well- controlled with current medical therapy). Denies: Cravings, Hallucinations - Patient Data Vitals - Most Recent: Last Vital Signs Temp 37.9 C 12/20/20 07:39 Pulse 133 H 12/20/20 03:45 Resp 24 H 12/20/20 03:45 BP 123/87 12/20/20 03:45 Pulse Ox 97 12/20/20 03:45 Vital Signs - 24 hr 12/19/20 12/19/20 12/19/20 14:00 18:11 19:20 Temperature Temperature [ 37.3 C 37.6 C Temporal] Pulse, 78 77 Peripheral [ Pulse Oximetry] Respiratory 20 28 H Rate Blood Pressure 118/47 L 115/49 L [Right Upper Arm] O2 Sat by Pulse 91 L 88 L Oximetry 12/20/20 12/20/20 12/20/20 00:00 03:45 07:39 Temperature 37.9 C Temperature [ 37.2 C 37.7 C Temporal] Pulse, 100 133 H Peripheral [ Pulse Oximetry] Respiratory 35 H 24 H Rate Blood Pressure 135/89 123/87 [Right Upper Arm] O2 Sat by Pulse 78 L 97 Oximetry Weight - Most Recent: 76.204 kg I&O - Last 24 Hours: Intake & Output 12/19/20 12/20/20 12/20/20 22:59 06:59 14:59 Intake Total 30 215 Output Total 300 Balance -270 215 Imaging Impressions - Last 24 Hours: associate medical director shows occasional sinus tachycardia with average heart rate in the 90s to low 100s with no ectopy or arrhythmia. Lab Results Last 24 Hours: Laboratory Results - last 24 hr 12/20/20 12/20/20 Range/Units 07:46 07:46 WBC 5.0 (4.0-10.2) K/uL RBC 3.55 L (4.33-5.41) M/uL Hgb 11.2 L (13.1-16.8) g/dL Hct 36.4 L (39.0-49.0) % MCV 102.5 H (84.0-98.0) fL MCH 31.5 (28.2-33.3) pg MCHC 30.8 L (31.7-36.0) g/dL RDW 13.3 (11.2-14.1) % Plt Count 189 (150-350) K/uL Neut % (Auto) 92.8 H (45.0-80.0) % Lymph % (Auto) 6.0 L (10.0-50.0) % [place] % (Auto) 1.0 L (2.0-14.0) % Eos % (Auto) 0.0 (0.0-5.0) % Baso % (Auto) 0.2 (0.0-2.0) % Neut # (Auto) 4.66 (1.40-7.00) K/uL Lymph # (Auto) 0.30 L (0.50-3.50) K/uL [place] # (Auto) 0.05 (0.00-1.00) K/uL Eos # (Auto) 0.00 (0.00-0.50) K/uL Baso # (Auto) 0.01 (0.00-0.20) K/uL Sodium 141 (136-145) mmol/L Potassium 4.6 (3.5-5.1) mmol/L Chloride 99 (98-107) mmol/L Carbon Dioxide 38.3 H (21.0-32.0) mmol/L BUN 35 H (7-18) mg/dL Creatinine 0.81 (0.51-1.17) mg/dL Est Cr Clr Drug Dosing 60.17 mL/min Estimated GFR (MDRD) > 60 mL/min Glucose 194 H (70-99) mg/dL Calcium 9.3 (8.5-10.1) mg/dL Total Bilirubin 0.3 (0.2-1.0) mg/dL AST 18 (15-37) U/L ALT 20 (12-78) U/L Alkaline Phosphatase 79 (46-116) IU/L Creatine Kinase 53 (26-308) U/L Creatine Kinase Index 3.2 H (0.0-2.5) % CK-MB (CK-2) 1.70 (0.00-3.60) ng/mL Troponin I 0.010 (0.000-0.056) ng/mL NT-Pro-B Natriuret Pep 560 H (0-125) pg/mL Total Protein 6.9 (6.4-8.2) g/dL Albumin 2.9 L (3.4-5.0) g/dL Vitamin B12 239 (193-986) pg/mL TSH, Ultra Sensitive 0.686 (0.358-3.740) mIU/mL Devin Results Last 24 Hours: Microbiology 12/19/20 04:45 Aerobic Blood Culture - Preliminary Blood - Venous - Lab Draw NO GROWTH AFTER 1 DAY Anaerobic Blood Culture - Preliminary NO GROWTH AFTER 1 DAY 12/19/20 04:45 Aerobic Blood Culture - Preliminary Blood - Venous NO GROWTH AFTER 1 DAY Anaerobic Blood Culture - Preliminary NO GROWTH AFTER 1 DAY 12/19/20 04:31 Influenza Type A Antigen Screen - Final Nasopharyngeal Swab NEGATIVE INFLUENZA A VIRUS AG REFERENCE RANGE: NEGATIVE Influenza Type B Antigen Screen - Final NEGATIVE INFLUENZA B VIRUS AG REFERENCE RANGE: NEGATIVE Med Orders - Current: Current Medications Acetaminophen (Acetaminophen 650 Mg Supp) 650 mg RECTAL Q4H PRN PRN Reason: Fever Last Admin: 12/20/20 07:39 Dose: 650 mg Documented by: Albuterol (Albuterol 0.083% 2.5 Mg/3 Ml Neb Soln) 2.5 mg NEB Q2H PRN PRN Reason: Dyspnea Last Admin: 12/19/20 23:50 Dose: 2.5 mg Documented by: Albuterol/Ipratropium (Albuterol/Ipratropium 3.0-0.5 Mg/3 Ml Neb Soln) 3 ml NEB Q4HRRT PRN PRN Reason: Dyspnea Albuterol/Ipratropium (Albuterol/Ipratropium 3.0-0.5 Mg/3 Ml Neb Soln) 3 ml NEB Q6HRRT [facility] Last Admin: 12/20/20 08:01 Dose: 3 ml Documented by: Bisacodyl (Bisacodyl 10 Mg Supp) 10 mg RECTAL DAILY PRN PRN Reason: Constipation Enoxaparin Sodium (Enoxaparin 30 Mg/0.3 Ml Syringe) 30 mg SUBCUT Q24H [facility] Last Admin: 12/19/20 14:00 Dose: 30 mg Documented by: Furosemide (Furosemide 40 Mg/4 Ml Vial) 40 mg IVPUSH DAILY [facility] Haloperidol Lactate (Haloperidol Lactate 5 Mg/Ml Sdv) 1 mg IVPUSH Q8H PRN PRN Reason: Agitation Levofloxacin/Dextrose 500 mg/ (Premix) 100 mls @ 100 mls/hr IV Q24H [facility] Last Admin: 12/19/20 11:52 Dose: 100 mls/hr Documented by: Metronidazole 500 mg/ Premix 100 mls @ 100 mls/hr IV Q8H [facility] Last Admin: 12/20/20 00:36 Dose: 100 mls/hr Documented by: Potassium Chloride/Dextrose/Sod Cl (D5 1/2 Ns W/ 20 Meq/L Kcl) 1,000 mls @ 75 mls/hr IV ASDIRECTED JB Vancomycin HCl 1 gm/ Dextrose/ (Water) 250 mls @ 165 mls/hr IV Q24H [facility] Lorazepam (Lorazepam 2 Mg/Ml Sdv) 1 mg IVPUSH Q2HR PRN PRN Reason: Agitation Last Admin: 12/20/20 07:37 Dose: 1 mg Documented by: Morphine Sulfate (Morphine 2 Mg/Ml Syringe) 2 mg .XX Q2H PRN PRN Reason: Dyspnea Neomycin/Polymyxin/Bacitracin (Bacitracin/Neomycin/Polymyxin B Oint 0.9 Gm U/D Packet) 1 each TOP DAILY [facility] Last Admin: 12/20/20 07:39 Dose: 1 each Documented by: Sodium Chloride (Sodium Chloride 0.9% 10 Ml Syringe) 10 ml FLUSH ASDIRECTED PRN PRN Reason: Keep Vein Open Last Admin: 12/20/20 03:41 Dose: 10 ml Documented by: Sodium Chloride (Sodium Chloride 0.9% 10 Ml Syringe) 10 ml FLUSH Q12H [facility] Last Admin: 12/19/20 21:30 Dose: 10 ml Documented by: Triamcinolone Acetonide (Triamcinolone Acetonide 0.1% Crm 15 Gm Tube) 0 gm TOP TID PRN PRN Reason: Itching Discontinued Medications Acetaminophen (Acetaminophen 325 Mg Tab) 650 mg PO Q4H PRN PRN Reason: Pain/Fever Furosemide (Furosemide 40 Mg/4 Ml Vial) 40 mg IVPUSH Q12H [facility] Last Admin: 12/19/20 10:28 Dose: 40 mg Documented by: Guaifenesin/Dextromethorphan (Dextromethorphan/Guaifenesin 600-30 Mg Tab.Er) 1 tab PO BID [facility] Last Admin: 12/19/20 18:07 Dose: Not Given Documented by: Haloperidol Lactate (Haloperidol Lactate 5 Mg/Ml Sdv) 1 mg IVPUSH ONETIME ONE Stop: 12/19/20 07:00 Last Admin: 12/19/20 07:16 Dose: 1 mg Documented by: Ceftriaxone Sodium 1 gm/ (Sodium Chloride) 100 mls @ 200 mls/hr IV ONETIME ONE Stop: 12/19/20 05:32 Last Admin: 12/19/20 05:10 Dose: 200 mls/hr Documented by: Ceftriaxone Sodium 1 gm/ (Sodium Chloride) 100 mls @ 200 mls/hr IV Q12H [facility] Last Admin: 12/20/20 03:59 Dose: 200 mls/hr Documented by: Lactobacillus Rhamnosus (Lactobacillus Rhamnosus Gg (Probiotic) Cap) 1 cap PO DAILY [facility] Last Admin: 12/19/20 11:06 Dose: Not Given Documented by: Lorazepam (Lorazepam 2 Mg/Ml Sdv) 0.5 mg IVPUSH ONETIME ONE Stop: 12/19/20 05:26 Last Admin: 12/19/20 05:29 Dose: 0.5 mg Documented by: Lorazepam (Lorazepam 2 Mg/Ml Sdv) 1 mg IVPUSH ONETIME ONE Stop: 12/19/20 07:01 Last Admin: 12/19/20 07:15 Dose: 1 mg Documented by: Lorazepam (Lorazepam 1 Mg Tab) 1 mg PO QID [facility] Last Admin: 12/19/20 19:44 Dose: Not Given Documented by: Methylprednisolone Sodium Succinate (Methylprednisolone Sodium Succinate 125 Mg/2 Ml Sdv) 125 mg IVPUSH ONETIME ONE Stop: 12/19/20 20:01 Last Admin: 12/19/20 21:29 Dose: 125 mg Documented by: Mirtazapine (Mirtazapine 30 Mg Tab) 30 mg PO BEDTIME [facility] Last Admin: 12/19/20 19:45 Dose: Not Given Documented by: Polyethylene Glycol (Polyethylene Glycol 3350 Powder 17 Gm Packet) 17 gm PO Q2D [facility] Last Admin: 12/19/20 11:06 Dose: Not Given Documented by: Potassium Chloride (Potassium Chloride 20 Meq Tab.Er) 20 meq PO BID [facility] Last Admin: 12/19/20 18:07 Dose: Not Given Documented by: Prednisone (Prednisone 20 Mg Tab) 20 mg PO DAILY [facility] Stop: 12/24/20 08:01 Senna (Sennosides 8.6 Mg Tab) 8.6 mg PO DAILY PRN PRN Reason: Constipation Sodium Chloride (Sodium Chloride 1 Gm Tab) 1 gm PO Q12HR [facility] Last Admin: 12/19/20 19:45 Dose: Not Given Documented by: Sodium Chloride (Sodium Chloride 0.9% 10 Ml Syringe) 10 ml FLUSH Q12H [facility] Last Admin: 12/19/20 11:07 Dose: Not Given Documented by: - Exam Quality Assessment: Supplemental Oxygen, Urine Catheter, DVT Prophylaxis (Lovenox). No: Central Line/PICC, Skin Breakdown, Restraints General: No Acute Distress, Sedated (But comfortable) HEENT: Pupils Equal, Pupils Reactive, EOMI, Mucous Membr. Moist/[place] Neck: Supple, Trachea Midline, No JVD, No Thyromegaly, Carotid Bruit (Mild bilateral carotid bruits). No: Lymphadenopathy, Thyromegaly Lungs: Rales (Diffuse mild bilateral). No: Rhonchi, Rub, Wheezing Cardiovascular: Regular Rhythm, No Murmurs, Tachycardia. No: Gallops, Rubs GI/Abdominal Exam: Normal Bowel Sounds, Soft, Non-Tender, No Organomegaly, No Distention, No Abnormal Bruit, No Mass, Pelvis Stable. No: Guarding (Male) Exam: Deferred Back Exam: Normal Inspection, Full Range of Motion. No: CVA Tenderness (L), CVA Tenderness (R) Extremities: Normal Inspection. No: Jey's Sign Peripheral Pulses: 2+: Radial (L), Radial (R), Dorsalis Pedis (L), Dorsalis Pedi s (R) Skin: Ecchymosis (Forearm secondary to previous blood draws and IVs) Neurological: No New Focal Deficit, Other (Stable moderate confusion with c urrent sedation secondary to IV medications. Stable left hemiparesis with negative Babinski's) Psy/Mental Status: Agitated (Occasionally but calm at time of exam). No: Hallu cinations, Withdrawal Symptoms #1 Interpretation EKG Date: 12/20/20 Time: 10:13 Rhythm: Other (Sinus tachycardia) Rate (Beats/Min): 101 [place]: Normal (Left) P-Wave: Present QRS: RBBB (0.14 seconds was in a complete right bundle branch block) ST-T: Normal (T wave inversion in leads III and V1 with noisy baseline) QT: Normal CO/PQ Interval: 0.19 seconds Comparison: NA - No Prior EKG EKG Interpretation Comments: 1. No acute ischemic changes 2. Complete right bundle branch block - Patient Data Lab Results Last 24 hrs: Laboratory Results - last 24 hr 12/20/20 12/20/20 Range/Units 07:46 07:46 WBC 5.0 (4.0-10.2) K/uL RBC 3.55 L (4.33-5.41) M/uL Hgb 11.2 L (13.1-16.8) g/dL Hct 36.4 L (39.0-49.0) % MCV 102.5 H (84.0-98.0) fL MCH 31.5 (28.2-33.3) pg MCHC 30.8 L (31.7-36.0) g/dL RDW 13.3 (11.2-14.1) % Plt Count 189 (150-350) K/uL Neut % (Auto) 92.8 H (45.0-80.0) % Lymph % (Auto) 6.0 L (10.0-50.0) % [place] % (Auto) 1.0 L (2.0-14.0) % Eos % (Auto) 0.0 (0.0-5.0) % Baso % (Auto) 0.2 (0.0-2.0) % Neut # (Auto) 4.66 (1.40-7.00) K/uL Lymph # (Auto) 0.30 L (0.50-3.50) K/uL [place] # (Auto) 0.05 (0.00-1.00) K/uL Eos # (Auto) 0.00 (0.00-0.50) K/uL Baso # (Auto) 0.01 (0.00-0.20) K/uL Sodium 141 (136-145) mmol/L Potassium 4.6 (3.5-5.1) mmol/L Chloride 99 (98-107) mmol/L Carbon Dioxide 38.3 H (21.0-32.0) mmol/L BUN 35 H (7-18) mg/dL Creatinine 0.81 (0.51-1.17) mg/dL Est Cr Clr Drug Dosing 60.17 mL/min Estimated GFR (MDRD) > 60 mL/min Glucose 194 H (70-99) mg/dL Calcium 9.3 (8.5-10.1) mg/dL Total Bilirubin 0.3 (0.2-1.0) mg/dL AST 18 (15-37) U/L ALT 20 (12-78) U/L Alkaline Phosphatase 79 (46-116) IU/L Creatine Kinase 53 (26-308) U/L Creatine Kinase Index 3.2 H (0.0-2.5) % CK-MB (CK-2) 1.70 (0.00-3.60) ng/mL Troponin I 0.010 (0.000-0.056) ng/mL NT-Pro-B Natriuret Pep 560 H (0-125) pg/mL Total Protein 6.9 (6.4-8.2) g/dL Albumin 2.9 L (3.4-5.0) g/dL Vitamin B12 239 (193-986) pg/mL TSH, Ultra Sensitive 0.686 (0.358-3.740) mIU/mL Result Diagrams: 12/20/20 07:46 12/20/20 07:46 Devin Results Last 24 hrs: Microbiology 12/19/20 04:45 Aerobic Blood Culture - Preliminary Blood - Venous - Lab Draw NO GROWTH AFTER 1 DAY Anaerobic Blood Culture - Preliminary NO GROWTH AFTER 1 DAY 12/19/20 04:45 Aerobic Blood Culture - Preliminary Blood - Venous NO GROWTH AFTER 1 DAY Anaerobic Blood Culture - Preliminary NO GROWTH AFTER 1 DAY 12/19/20 04:31 Influenza Type A Antigen Screen - Final Nasopharyngeal Swab NEGATIVE INFLUENZA A VIRUS AG REFERENCE RANGE: NEGATIVE Influenza Type B Antigen Screen - Final NEGATIVE INFLUENZA B VIRUS AG REFERENCE RANGE: NEGATIVE Sepsis Event Note - Evaluation Sepsis Screening Result: No Definite Risk - Focused Exam Vital Signs: Vital Signs Temp Temp Pulse Resp BP Pulse Ox 12/20/20 07:39 37.9 C 12/20/20 03:45 37.7 C 133 H 24 H 123/87 97 12/20/20 00:00 37.2 C 100 35 H 135/89 78 L - Problem List & Annotations (1) Pneumonia SNOMED Code(s): 694194941 Code(s): J18.9 - PNEUMONIA, UNSPECIFIED ORGANISM Status: Acute Priority: High Current Visit: Yes Onset Date: ~12/19/20 Qualifiers: Pneumonia type: due to unspecified organism Laterality: left Lung location: lower lobe of lung Qualified Code(s): J18.9 - Pneumonia, unspecified organism Annotation/Comment:: Continued high fever and hypoxia in spite of aggressive triple antibiotic therapy as below. Pharmacy consultation held with Rosalba today with IV Rocephin to be placed with IV vancomycin. Trough vancomycin level shou ld be drawn on 12/22 with additional blood work to be conducted at the same time as per orders by [facility] physician, who assumes care on 12/21. Note likely previous aspiration pneumonia with patient aggressively covered initially with IV Levaquin, IV Rocephin, and IV Flagyl shortly after admission. Note previously suspected pneumonia prior to admission with previous IM Rocephin and oral doxycycline therapy. Additional IV Rocephin was initiated in the emergency room. Lactic acid level was normal on admission and also on 12/20 with no initial clinical evidence of sepsis. Unable to obtain a sputum specimen for culture and sensitivity. Prognosis is extremely guarded with the patient's 2 daughters counseled today concerning the possibility of the patient not surviving this hospitalization especially in light of concomitant CHF, etc. Various therapeutic options were discussed with hospice consultation ordered, which should be continued when the patient is transferred back to [facility] in [place]. Emotional support was provided to the family members. (2) Confusion SNOMED Code(s): 365400750 Code(s): R41.0 - DISORIENTATION, UNSPECIFIED Status: Acute Priority: High Current Visit: Yes Onset Date: ~12/19/20 Annotation/Comment:: Confusion secondary either to recent CVA versus current infection. Note negative CT scan of the head in the emergency room. Per his daughter's request no further work- up, including hospital transfer for MRI of the brain, etc.. Vitamin B12 level, TSH, were conducted on 12/20 with results as above. Prognosis extremely guarded. Negative UA. (3) CVA (cerebral vascular accident) SNOMED Code(s): 497330652 Code(s): I63.9 - CEREBRAL INFARCTION, UNSPECIFIED Status: Acute Priority: High Current Visit: Yes Qualifiers: CVA mechanism: unspecified Qualified Code(s): I63.9 - Cerebral infarction, unspecified Annotation/Comment:: Probable CVA about 1-2 weeks prior to patient's admission with progressive dysarthria, left-sided weakness, confusion, and aspiration. No further work-up per family's request as above. Prognosis poor. (4) Need for comfort care SNOMED Code(s): 897717891, 620662439 Code(s): GZE1160 - Status: Acute Priority: High Current Visit: Yes Onset Date: 12/19/20 Annotation/Comment:: Initially patient was a full code, however per request of the patient's daughter, November, the patient was placed on comfort care/NO CODE STATUS, including no further transfer to the [facility], etc. in the emergency room. The patient did become extremely agitated in the emergency room and did require IV Ativan and IV Haldol therapy, which was continued for patient safety and comfort after admission. Secondary to multiple healthcare issues as above his overall prognosis is extremely guarded with patient possibly not surviving this hospitalization. His daughters aware of this poor prognosis as above. (5) CHF (congestive heart failure) SNOMED Code(s): 59458188 Code(s): I50.9 - HEART FAILURE, UNSPECIFIED Status: Acute Priority: High Current Visit: Yes Onset Date: 12/19/20 Qualifiers: Heart failure type: unspecified Heart failure chronicity: acute Qualified Code(s): I50.9 - Heart failure, unspecified Annotation/Comment:: The patient was not able to tolerate oral medications with oral potassium chloride discontinued yesterday. IV Lasix therapy was also held yesterday afternoon, although this was resumed in the a.m. at a lower dose on 12/20 with high normal potassium level in spite of discontinuation of oral potassium as above. Secondary to poor oral intake IV fluids continue potassium chloride was started on 12/20 with caution. Continue close observation of patient's renal status, etc. especially in light of newly initiated vancomycin as above. Patient is a poor historian with no direct evidence of chest pain or anginal type symptoms either prior to admission or during this hospitalization. Troponin I is still normal with mild progression of patient's BNP. Chest x-ray to be conducted in the a.m.. Hunter catheter was placed on admission for accurate I's and O's. Secondary to comfort care status no further work-up, including echocardiogram, etc. Prognosis extremely guarded. Consider MAYLIN inhibitor therapy once patient's response to IV Lasix has been determined. (6) COPD, Moderate chronic obstructive pulmonary disease SNOMED Code(s): 999364666 Code(s): J44.9 - CHRONIC OBSTRUCTIVE PULMONARY DISEASE, UNSPECIFIED Status: Chronic Priority: High Current Visit: Yes Annotation/Comment:: Mild COPD exacerbation secondary to patient's current probable pneumonia as above. Patient was agitated and needed sedation and will likely not be able to tolerate inhaler therapy. Isolation precautions with initiation of DuoNeb nebulizer treatments, etc. His Pulmicort nebulizer treatments will be held for now secondary to previous high-dose oral steroids. Oral medications not tolerated early this hospitalization was changed to IV Solu-Medrol in order to avoid adrenal crisis from patient's previous high-dose oral therapy. Morphine nebulizer treatments were also added on a as needed basis for patient comfort, etc. on 12/20. His COVID-19 rapid test was negative, although minimize staff ex posure to nebulizer therapy. Patient cannot perform incentive spirometry. The patient is steroid and O2 dependent with significant hypoxia on room air prior to patient's transfer and increased oxygen requirements early in this hospitalization. In spite of significant additional hypercapnia as per ABGs in the emergency room attempts to decrease his oxygen requirement at this time have been unsuccessful. (7) Macrocytic anemia SNOMED Code(s): 60243816 Code(s): D53.9 - NUTRITIONAL ANEMIA, UNSPECIFIED Status: Acute Priority: High Current Visit: Yes Onset Date: ~12/19/20 Annotation/Comment:: Mild progressive anemia with no evidence of acute GI bleed. Note normal vitamin B12 level on 12/20 with newly diagnosed iron deficiency on 12/20. Observe for now with patient not able to take oral pills at this time. IV Protonix added as GI prophylaxis. (8) Complete right bundle branch block SNOMED Code(s): 684410957 Code(s): I45.10 - UNSPECIFIED RIGHT BUNDLE-BRANCH BLOCK Status: Acute Priority: Medium Current Visit: Yes Onset Date: 12/20/20 Annotation/Comment:: Newly diagnosed. Observe for now. - Problem List Review Problem List Initiated/Reviewed/Updated: Yes - My Orders Last 24 Hours: My Active Orders 12/19/20 08:42 Triamcinolone Acetonide [Triamcinolone Acetonide 0.1% Crm] 0 gm TOP TID PRN 12/19/20 09:12 Antiembolic Devices [RC] .Routine Communication Order [RC] PER UNIT ROUTINE Communication Order [RC] PER UNIT ROUTINE Height and Weight [RC] DAILY Intake and Output Strict [RC] ,18 Oxygen Therapy [RC] 2300 Pulse Oximetry [RC] ASDIRECTED Vital Signs [RC] Q4HR OCCULT BLOOD DIAGNOSTIC [OP] Routine Albuterol [Proventil Neb Soln] 2.5 mg NEB Q2H PRN Albuterol/Ipratropium [DuoNeb 3.0-0.5 MG/3 ML] 3 ml NEB Q4HRRT PRN CHF Questionnaire [COMM] Routine DVT/VTE Prophylaxis Reflex [OM.PC] Routine GM Immunization Reflex [OM.PC] Click to Edit 12/19/20 09:14 Antiembolic Devices [RC] 08,20 Communication, Vaccine [RC] PER UNIT ROUTINE VTE/DVT Education [RC] PER UNIT ROUTINE Vaccines to be Administered [RC] 08 12/19/20 09:19 Comfort Measures [OM.PC] Routine 12/19/20 09:23 Haloperidol Lactate [Haldol] 1 mg IVPUSH Q8H PRN 12/19/20 09:24 Communication Order [RC] ROUTINE 12/19/20 09:26 Resuscitation Status Routine 12/19/20 09:30 Levofloxacin/Dextrose 5%-Water [Levaquin in D5W 500 MG/100 ML] 500 mg Premix Bag 1 bag IV Q24H metroNIDAZOLE/Normal Saline [Flagyl in NS 500 MG/100 ML] 500 mg Premix Bag 1 bag IV Q8H 12/19/20 11:15 Bacitracin/Neomycin/Polymyxin [Triple Antibiotic Oint] 1 each TOP DAILY 12/19/20 Lunch Fluid Restriction [DIET] 12/19/20 12:30 Enoxaparin [Lovenox] 30 mg SUBCUT Q24H 12/19/20 14:00 Albuterol/Ipratropium [DuoNeb 3.0-0.5 MG/3 ML] 3 ml NEB Q6HRRT 12/19/20 17:12 MRSA BY PCR [MREF] Routine 12/19/20 19:52 LORazepam [Ativan] 1 mg IVPUSH Q2HR PRN bisacodyL [Dulcolax] 10 mg RECTAL DAILY PRN 12/19/20 19:54 Acetaminophen [Tylenol] 650 mg RECTAL Q4H PRN 12/19/20 20:00 Sodium Chloride 0.9% [Saline Flush] 10 ml FLUSH Q12H 12/20/20 05:11 LACTATE SEPSIS W/ REFLEX [CHEM] Stat 12/20/20 07:45 D5 1/2 NS w/ 20 mEq/L KCl 1,000 ml IV ASDIRECTED 12/20/20 07:46 IRON/TIBC [CHEM] Routine 12/20/20 08:53 Cardiac Monitoring [RC] . DIRECTED 12/20/20 09:15 Consult to Hospice [CONS] Routine 12/20/20 09:17 Morphine 2 mg .XX Q2H PRN 12/20/20 09:25 EKG Documentation Completion [RC] ASDIRECTED EKG 12 Lead [EK] Stat 12/20/20 09:30 Furosemide [Lasix] 40 mg IVPUSH DAILY Vancomycin 1 gm Dextrose 5% in Water 250 ml IV Q24H 12/21/20 05:11 Chest 1V Frontal [CR] Routine BASIC METABOLIC PANEL,BMP [CHEM] Routine CBC WITH AUTO DIFF [HEME] Routine LACTATE SEPSIS W/ REFLEX [CHEM] Routine PRO B-TYPE NATRIUR PEPT,BNPPRO [CHEM] Routine TROPONIN I [CHEM] Routine - Assessment Assessment:: As above - Plan Plan:: As above. Extensive precautions were given to the patient's 2 daughters, who are in agreement with the treatment plan. The patient will require about 2-3 days of inpatient/acute care secondary to multiple health problems as above. Prognosis is extremely poor as above. mechanical lead provider assumes care on 12/21.
[2020-12-20] MEDS: Pantoprazole 40 MG Vial IVPUSH SCH ×2 (10:10→21:55)
[2020-12-20] MEDS: Sodium Chloride 0.9% 10 ML Syringe FLUSH SCH ×2 (10:16→21:54)
[2020-12-20] MEDS: methylPREDNISolone Sodium Succinate 125 MG/2 ML SDV IVPUSH SCH (10:18)
[2020-12-20 10:22] LABS: PCO2 ARTERIAL,POC 88 mmHg (35-48)
[2020-12-20] MEDS: Haloperidol Lactate 5 MG/ML SDV IVPUSH PRN ×2 (10:25→21:56)
[2020-12-20] MEDS: Levofloxacin/Dextrose 5%-Water 500 MG in Premix Bag 1 BAG IV SCH (11:36)
[2020-12-20] MEDS: Enoxaparin 30 MG/0.3 ML Syringe SUBCUT SCH (11:43)
[2020-12-20] MEDS: Morphine 2 MG/ML SYRINGE PRN ×2 (16:19→19:24)
[2020-12-20] MEDS ORDERED: Ketorolac 30 MG/ML SDV IVPUSH ONE (17:26)
[2020-12-20] MEDS ORDERED: Ketorolac 15 MG/ML SDV IVPUSH PRN (17:28)
[2020-12-20] MEDS: Morphine 2 MG/ML SYRINGE IVPUSH SCH ×2 (18:01→21:55)
[2020-12-20] MEDS: LORazepam 2 MG/ML SDV IVPUSH SCH (21:54)
[2020-12-21] MEDS: Morphine 2 MG/ML SYRINGE IVPUSH SCH ×6 (01:28→22:14)
[2020-12-21] MEDS: Sodium Chloride 0.9% 10 ML Syringe FLUSH PRN ×4 (01:29→11:50)
[2020-12-21] MEDS: LORazepam 2 MG/ML SDV IVPUSH SCH ×6 (01:29→22:19)
[2020-12-21] MEDS: metroNIDAZOLE/Normal Saline 500 MG in Premix Bag 1 BAG IV SCH ×3 (01:30→18:25)
[2020-12-21] MEDS: Albuterol/Ipratropium 3.0-0.5 MG/3 ML Neb Soln NEB SCH ×4 (01:34→22:13)
[2020-12-21 08:10] LABS: CHLORIDE,CL 101 mmol/L (98-107); SODIUM,NA 145 mmol/L (136-145)
[2020-12-21] MEDS: methylPREDNISolone Sodium Succinate 125 MG/2 ML SDV IVPUSH SCH (09:05)
[2020-12-21] MEDS: Bacitracin/Neomycin/Polymyxin B Oint 0.9 GM U/D Packet TOP SCH (09:05)
[2020-12-21] MEDS: Sodium Chloride 0.9% 10 ML Syringe FLUSH SCH ×3 (09:09→22:20)
[2020-12-21] MEDS: Pantoprazole 40 MG Vial IVPUSH SCH ×2 (09:11→22:30)
[2020-12-21] MEDS: Acetaminophen 650 MG Supp RECTAL PRN (09:36)
[2020-12-21] MEDS: Levofloxacin/Dextrose 5%-Water 500 MG in Premix Bag 1 BAG IV SCH (10:28)
[2020-12-21] MEDS: Enoxaparin 30 MG/0.3 ML Syringe SUBCUT SCH (11:47)
[2020-12-21] MEDS ORDERED: Saliva Substitute Oral Spray 120 ML Bottle MUCMEM PRN (19:10)
[2020-12-22] MEDS: metroNIDAZOLE/Normal Saline 500 MG in Premix Bag 1 BAG IV SCH ×3 (01:32→17:57)
[2020-12-22] MEDS: LORazepam 2 MG/ML SDV IVPUSH SCH ×6 (01:32→22:12)
[2020-12-22] MEDS: Sodium Chloride 0.9% 10 ML Syringe FLUSH SCH ×3 (01:33→20:24)
[2020-12-22] MEDS: Morphine 2 MG/ML SYRINGE IVPUSH SCH ×6 (01:33→21:36)
[2020-12-22] MEDS: Albuterol/Ipratropium 3.0-0.5 MG/3 ML Neb Soln NEB SCH ×4 (01:34→20:24)
[2020-12-22] MEDS: Sodium Chloride 0.9% 10 ML Syringe FLUSH PRN (05:48)
[2020-12-22] MEDS: Bacitracin/Neomycin/Polymyxin B Oint 0.9 GM U/D Packet TOP SCH (10:01)
[2020-12-22] MEDS: methylPREDNISolone Sodium Succinate 125 MG/2 ML SDV IVPUSH SCH (10:01)
[2020-12-22] MEDS: Pantoprazole 40 MG Vial IVPUSH SCH ×2 (10:02→21:36)
--- NOTE | 2020-12-22 11:32 | PCM.PN ---
- General Info Date of Service: 12/21/20 Admission Dx/Problem (Free Text): 1. Aspiration pneumonia 2. CHF 3. Confusion with probable CVA 4. COPD Subjective Update: Patient sleeping since receiving Haldol for agitation previous night. No acute changes noted by family who have been present in room with patient since admission. Functional Status: Reports: Pain Controlled. Denies: New Symptoms - Review of Systems General: Denies: Fever HEENT: Denies: Rhinitis Pulmonary: Reports: Other (4L oxygen NC. O2 sats low 90s). Denies: Cough Gastrointestinal: Denies: Diarrhea, Vomiting Neurological: Reports: Other (sleeping) Psychiatric: Reports: Agitation (previous night) - Patient Data Vitals - Most Recent: Last Vital Signs Temp 36.7 C 12/22/20 08:00 Pulse 73 12/22/20 08:00 Resp 16 12/22/20 08:00 BP 128/56 L 12/22/20 08:00 Pulse Ox 91 L 12/22/20 08:00 Weight - Most Recent: 75.296 kg I&O - Last 24 Hours: Intake & Output 12/21/20 12/22/20 12/22/20 22:59 06:59 14:59 Intake Total 850 Output Total 325 200 Balance 525 -200 Devin Results Last 24 Hours: Microbiology 12/19/20 04:45 Aerobic Blood Culture - Preliminary Blood - Venous - Lab Draw NO GROWTH AFTER 3 DAYS Anaerobic Blood Culture - Preliminary NO GROWTH AFTER 3 DAYS 12/19/20 04:45 Aerobic Blood Culture - Preliminary Blood - Venous NO GROWTH AFTER 3 DAYS Anaerobic Blood Culture - Preliminary NO GROWTH AFTER 3 DAYS 12/19/20 17:12 MRSA (PCR) - Final Nasal, Unspecified 12/19/20 08:00 Urine Culture - Final Urine, Catheterized NO GROWTH AFTER 2 DAYS Med Orders - Current: Current Medications Acetaminophen (Acetaminophen 650 Mg Supp) 650 mg RECTAL Q4H PRN PRN Reason: Fever Last Admin: 12/21/20 09:36 Dose: 650 mg Documented by: Albuterol (Albuterol 0.083% 2.5 Mg/3 Ml Neb Soln) 2.5 mg NEB Q2H PRN PRN Reason: Dyspnea Last Admin: 12/19/20 23:50 Dose: 2.5 mg Documented by: Albuterol/Ipratropium (Albuterol/Ipratropium 3.0-0.5 Mg/3 Ml Neb Soln) 3 ml NEB Q4HRRT PRN PRN Reason: Dyspnea Last Admin: 12/20/20 16:52 Dose: 3 ml Documented by: Albuterol/Ipratropium (Albuterol/Ipratropium 3.0-0.5 Mg/3 Ml Neb Soln) 3 ml NEB Q6HRRT [facility] Last Admin: 12/22/20 10:08 Dose: 3 ml Documented by: Bisacodyl (Bisacodyl 10 Mg Supp) 10 mg RECTAL DAILY PRN PRN Reason: Constipation Enoxaparin Sodium (Enoxaparin 30 Mg/0.3 Ml Syringe) 30 mg SUBCUT Q24H [facility] Last Admin: 12/21/20 11:47 Dose: 30 mg Documented by: Haloperidol Lactate (Haloperidol Lactate 5 Mg/Ml Sdv) 1 mg IVPUSH Q8H PRN PRN Reason: Agitation Last Admin: 12/20/20 21:56 Dose: 1 mg Documented by: Levofloxacin/Dextrose 500 mg/ (Premix) 100 mls @ 100 mls/hr IV Q24H [facility] Last Admin: 12/21/20 10:28 Dose: 100 mls/hr Documented by: Metronidazole 500 mg/ Premix 100 mls @ 100 mls/hr IV Q8H [facility] Last Admin: 12/22/20 10:10 Dose: 100 mls/hr Documented by: Vancomycin HCl 1 gm/ Sodium (Chloride) 250 mls @ 164.986 mls/hr IV Q24H [facility] Last Admin: 12/21/20 11:44 Dose: 164.986 mls/hr Documented by: Ketorolac Tromethamine (Ketorolac 15 Mg/Ml Sdv) 15 mg IVPUSH Q6H PRN PRN Reason: Fever Lorazepam (Lorazepam 2 Mg/Ml Sdv) 1 mg IVPUSH Q2HR PRN PRN Reason: Agitation Last Admin: 12/20/20 19:25 Dose: 1 mg Documented by: Lorazepam (Lorazepam 2 Mg/Ml Sdv) 1 mg IVPUSH Q4H [facility] Last Admin: 12/22/20 05:47 Dose: 1 mg Documented by: Methylprednisolone Sodium Succinate (Methylprednisolone Sodium Succinate 125 Mg/2 Ml Sdv) 125 mg IVPUSH DAILY [facility] Last Admin: 12/22/20 10:01 Dose: 125 mg Documented by: Morphine Sulfate (Morphine 2 Mg/Ml Syringe) 2 mg .XX Q2H PRN PRN Reason: Dyspnea Last Admin: 12/20/20 19:24 Dose: 2 mg Documented by: Morphine Sulfate (Morphine 2 Mg/Ml Syringe) 2 mg IVPUSH Q4H [facility] Last Admin: 12/22/20 10:01 Dose: 2 mg Documented by: Neomycin/Polymyxin/Bacitracin (Bacitracin/Neomycin/Polymyxin B Oint 0.9 Gm U/D Packet) 1 each TOP DAILY [facility] Last Admin: 12/22/20 10:01 Dose: 1 each Documented by: Pantoprazole Sodium (Pantoprazole 40 Mg Vial) 40 mg IVPUSH Q12H [facility] Last Admin: 12/22/20 10:02 Dose: 40 mg Documented by: Saliva Substitute (Saliva Substitute Oral [place] 120 Ml Bottle) 0 ml MUCMEM ASDIRECTED PRN PRN Reason: Dryness Sodium Chloride (Sodium Chloride 0.9% 10 Ml Syringe) 10 ml FLUSH ASDIRECTED PRN PRN Reason: Keep Vein Open Last Admin: 12/22/20 05:48 Dose: 10 ml Documented by: Sodium Chloride (Sodium Chloride 0.9% 10 Ml Syringe) 10 ml FLUSH Q12H [facility] Last Admin: 12/22/20 10:09 Dose: 10 ml Documented by: Sodium Chloride (Sodium Chloride 0.9% Inhalation Soln 3 Ml Neb) 3 ml INH Q2H PRN PRN Reason: DYSPNEA Last Admin: 12/20/20 16:20 Dose: 3 ml Documented by: Triamcinolone Acetonide (Triamcinolone Acetonide 0.1% Crm 15 Gm Tube) 0 gm TOP TID PRN PRN Reason: Itching Vancomycin HCl (Pharmacy To Dose - Vancomycin) 1 dose .XX ASDIRECTED [facility] Discontinued Medications Acetaminophen (Acetaminophen 325 Mg Tab) 650 mg PO Q4H PRN PRN Reason: Pain/Fever Furosemide (Furosemide 40 Mg/4 Ml Vial) 40 mg IVPUSH Q12H [facility] Last Admin: 12/19/20 10:28 Dose: 40 mg Documented by: Furosemide (Furosemide 40 Mg/4 Ml Vial) 40 mg IVPUSH DAILY [facility] Last Admin: 12/20/20 10:08 Dose: 40 mg Documented by: Guaifenesin/Dextromethorphan (Dextromethorphan/Guaifenesin 600-30 Mg Tab.Er) 1 tab PO BID [facility] Last Admin: 12/19/20 18:07 Dose: Not Given Documented by: Haloperidol Lactate (Haloperidol Lactate 5 Mg/Ml Sdv) 1 mg IVPUSH ONETIME ONE Stop: 12/19/20 07:00 Last Admin: 12/19/20 07:16 Dose: 1 mg Documented by: Ceftriaxone Sodium 1 gm/ (Sodium Chloride) 100 mls @ 200 mls/hr IV ONETIME ONE Stop: 12/19/20 05:32 Last Admin: 12/19/20 05:10 Dose: 200 mls/hr Documented by: Ceftriaxone Sodium 1 gm/ (Sodium Chloride) 100 mls @ 200 mls/hr IV Q12H [facility] Last Admin: 12/20/20 03:59 Dose: 200 mls/hr Documented by: Potassium Chloride/Dextrose/Sod Cl (D5 1/2 Ns W/ 20 Meq/L Kcl) 1,000 mls @ 75 mls/hr IV ASDIRECTED [facility] Last Admin: 12/20/20 13:58 Dose: 75 mls/hr Documented by: Ketorolac Tromethamine (Ketorolac 30 Mg/Ml Sdv) 30 mg IVPUSH ONETIME ONE Stop: 12/20/20 17:27 Last Admin: 12/20/20 18:02 Dose: 30 mg Documented by: Lactobacillus Rhamnosus (Lactobacillus Rhamnosus Gg (Probiotic) Cap) 1 cap PO DAILY [facility] Last Admin: 12/19/20 11:06 Dose: Not Given Documented by: Lorazepam (Lorazepam 2 Mg/Ml Sdv) 0.5 mg IVPUSH ONETIME ONE Stop: 12/19/20 05:26 Last Admin: 12/19/20 05:29 Dose: 0.5 mg Documented by: Lorazepam (Lorazepam 2 Mg/Ml Sdv) 1 mg IVPUSH ONETIME ONE Stop: 12/19/20 07:01 Last Admin: 12/19/20 07:15 Dose: 1 mg Documented by: Lorazepam (Lorazepam 1 Mg Tab) 1 mg PO QID [facility] Last Admin: 12/19/20 19:44 Dose: Not Given Documented by: Methylprednisolone Sodium Succinate (Methylprednisolone Sodium Succinate 125 Mg/2 Ml Sdv) 125 mg IVPUSH ONETIME ONE Stop: 12/19/20 20:01 Last Admin: 12/19/20 21:29 Dose: 125 mg Documented by: Mirtazapine (Mirtazapine 30 Mg Tab) 30 mg PO BEDTIME [facility] Last Admin: 12/19/20 19:45 Dose: Not Given Documented by: Polyethylene Glycol (Polyethylene Glycol 3350 Powder 17 Gm Packet) 17 gm PO Q2D [facility] Last Admin: 12/19/20 11:06 Dose: Not Given Documented by: Potassium Chloride (Potassium Chloride 20 Meq Tab.Er) 20 meq PO BID [facility] Last Admin: 12/19/20 18:07 Dose: Not Given Documented by: Prednisone (Prednisone 20 Mg Tab) 20 mg PO DAILY [facility] Stop: 12/24/20 08:01 Senna (Sennosides 8.6 Mg Tab) 8.6 mg PO DAILY PRN PRN Reason: Constipation Sodium Chloride (Sodium Chloride 1 Gm Tab) 1 gm PO Q12HR [facility] Last Admin: 12/19/20 19:45 Dose: Not Given Documented by: Sodium Chloride (Sodium Chloride 0.9% 10 Ml Syringe) 10 ml FLUSH Q12H [facility] Last Admin: 12/19/20 11:07 Dose: Not Given Documented by: - Exam Quality Assessment: Supplemental Oxygen General: Obtunded HEENT: Other (pupils 2mm bilaterally) Neck: Trachea Midline Lungs: Decreased Breath Sounds (throughout). No: Crackles, Rales, Rhonchi, Stridor, Wheezing Cardiovascular: Regular Rate, Regular Rhythm GI/Abdominal Exam: Soft, Non-Tender (Male) Exam: Deferred Back Exam: No: Muscle Spasm Extremities: Other (lower legs both in heel protectors. Dry skin. ). No: Pedal Edema, Mottled Skin: Warm, Dry Neurological: No New Focal Deficit - Patient Data Result Diagrams: 12/22/20 11:20 12/22/20 11:20 Devin Results Last 24 hrs: Microbiology 12/19/20 04:45 Aerobic Blood Culture - Preliminary Blood - Venous - Lab Draw NO GROWTH AFTER 3 DAYS Anaerobic Blood Culture - Preliminary NO GROWTH AFTER 3 DAYS 12/19/20 04:45 Aerobic Blood Culture - Preliminary Blood - Venous NO GROWTH AFTER 3 DAYS Anaerobic Blood Culture - Preliminary NO GROWTH AFTER 3 DAYS 12/19/20 17:12 MRSA (PCR) - Final Nasal, Unspecified 12/19/20 08:00 Urine Culture - Final Urine, Catheterized NO GROWTH AFTER 2 DAYS Sepsis Event Note - Evaluation Sepsis Screening Result: No Definite Risk - Focused Exam Vital Signs: Vital Signs Temp Pulse Resp BP Pulse Ox 12/22/20 08:00 36.7 C 73 16 128/56 L 91 L - Problem List & Annotations (1) Pneumonia SNOMED Code(s): 522213621 Code(s): J18.9 - PNEUMONIA, UNSPECIFIED ORGANISM Status: Acute Priority: High Current Visit: Yes Onset Date: ~12/19/20 Qualifiers: Pneumonia type: due to unspecified organism Laterality: left Lung location: lower lobe of lung Qualified Code(s): J18.9 - Pneumonia, unspecified organism Annotation/Comment:: High fever has resolved. Continued O2 requirement. Aggressive triple antibiotic therapy with Vanco/Levaquin/Flagyl initiated. Trough level pending tomorrow. Note likely previous aspiration pneumonia with worsening left sided infiltrate noted on today's xray. Note previously suspected pneumonia prior to admission with previous IM Rocephin and oral doxycycline therapy. Additional IV Rocephin was initiated in the emergency room. Lactic acid level was normal on admission and also on 12/20 with no initial clinical evidence of sepsis. Unable to obtain a sputum specimen for culture and sensitivity. Prognosis is extremely guarded. (2) Need for comfort care SNOMED Code(s): 119191327, 097490502 Code(s): VFU9919 - Status: Acute Priority: High Current Visit: Yes Onset Date: 12/19/20 Annotation/Comment:: Initially patient was a full code, however per request of the patient's daughter, November, the patient was placed on comfort care/NO CODE STATUS, including no further transfer to the [facility], etc. in the emergency room. The patient did become extremely agitated in the emergency room and did require IV Ativan and IV Haldol therapy, which was continued for patient safety and comfort after admission. Secondary to multiple healthcare issues as above his overall prognosis is extremely guarded with patient possibly not surviving this hospitalization. His daughters aware of this poor prognosis as above. (3) Confusion SNOMED Code(s): 989708436 Code(s): R41.0 - DISORIENTATION, UNSPECIFIED Status: Acute Priority: High Current Visit: Yes Onset Date: ~12/19/20 Annotation/Comment:: Confusion secondary either to recent CVA versus current infection. Note negative CT scan of the head in the emergency room. Family suspects that patient also had CVA around [facility] as they noted left sided facial droop at that time and patient complaining of increased difficulty using left hand. Per his daughter's request no further work-up, including hospital transfer for MRI of the brain, etc.. Vitamin B12 level, TSH, were conducted on 12/20 with results as above. Prognosis extremely guarded. Negative UA. (4) CHF (congestive heart failure) SNOMED Code(s): 61054049 Code(s): I50.9 - HEART FAILURE, UNSPECIFIED Status: Acute Priority: High Current Visit: Yes Onset Date: 12/19/20 Qualifiers: Heart failure type: unspecified Heart failure chronicity: acute Qualified Code(s): I50.9 - Heart failure, unspecified Annotation/Comment:: The patient was not able to tolerate oral medications with oral potassium chloride discontinued. Lasix IV also has been discontinued for now as daughters are looking at comfort care and probable withdrawal of antibiotics in AM and placing patient on hospice care. BNP increased to 2604. Troponin also elevated to 0.079 (5) CVA (cerebral vascular accident) SNOMED Code(s): 282273262 Code(s): I63.9 - CEREBRAL INFARCTION, UNSPECIFIED Status: Acute Priority: High Current Visit: Yes Qualifiers: CVA mechanism: unspecified Qualified Code(s): I63.9 - Cerebral infarction, unspecified Annotation/Comment:: Probable CVA about 1-2 weeks prior to patient's admission with progressive dysarthria, left-sided weakness, confusion, and aspiration. No further work-up per family's request as above. Prognosis poor. (6) Complete right bundle branch block SNOMED Code(s): 622718319 Code(s): I45.10 - UNSPECIFIED RIGHT BUNDLE-BRANCH BLOCK Status: Acute Priority: Medium Current Visit: Yes Onset Date: 12/20/20 Annotation/Comment:: Newly diagnosed. Observe for now. (7) Macrocytic anemia SNOMED Code(s): 09140774 Code(s): D53.9 - NUTRITIONAL ANEMIA, UNSPECIFIED Status: Acute Priority: High Current Visit: Yes Onset Date: ~12/19/20 Annotation/Comment:: Mild progressive anemia with no evidence of acute GI bleed. Note normal vitamin B12 level on 12/20 with newly diagnosed iron deficiency on 12/20. Observe for now with patient not able to take oral pills at this time. IV Protonix added as GI prophylaxis. (8) COPD, Moderate chronic obstructive pulmonary disease SNOMED Code(s): 325576264 Code(s): J44.9 - CHRONIC OBSTRUCTIVE PULMONARY DISEASE, UNSPECIFIED Status: Chronic Priority: High Current Visit: Yes Annotation/Comment:: Mild COPD exacerbation secondary to patient's current probable pneumonia as above. Patient was agitated and needed sedation and will likely not be able to tolerate inhaler therapy. Isolation precautions with initiation of DuoNeb nebulizer treatments, etc. His Pulmicort nebulizer treatments will be held for now secondary to previous high-dose oral steroids. Oral medications not tolerated early this hospitalization was changed to IV Solu-Medrol in order to avoid adrenal crisis from patient's previous high-dose oral therapy. Morphine nebulizer treatments were also added on a as needed basis for patient comfort, etc. on 12/20. His COVID-19 rapid test was negative, although minimize staff exposure to nebulizer therapy. Patient cannot perform incentive spirometry. The patient is steroid and O2 dependent with significant hypoxia on room air prior to patient's transfer and increased oxygen requirements early in this hospitalization. In spite of significant additional hypercapnia as per ABGs in the emergency room attempts to decrease his oxygen requirement at this time have been unsuccessful. - Problem List Review Problem List Initiated/Reviewed/Updated: Yes - My Orders Last 24 Hours: My Active Orders 12/21/20 19:10 Carboxymethylcellulose/Lytes [Ruben-Stir Oral [place]] 0 ml MUCMEM ASDIRECTED PRN 12/22/20 11:20 CBC WITH AUTO DIFF [HEME] Routine COMPREHENSIVE METABOLIC PN,CMP [CHEM] Routine TROPONIN I [CHEM] Routine 12/23/20 05:11 Chest 1V Frontal [CR] AM COMPREHENSIVE METABOLIC PN,CMP [CHEM] AM TROPONIN I [CHEM] AM 12/23/20 05:15 CBC WITH AUTO DIFF [HEME] AM - Assessment Assessment:: As above - Plan Plan:: As above. Extensive precautions were given to the patient's 2 daughters, who are in agreement with the treatment plan. At this time it is anticipated that patient will likely be discharged back to [facility] Wednesday on hospice care depending on patient's response to current treatment. Antibiotics will be continued through weekend for coverage of the pneumonia. Prognosis is extremely poor as above.
[2020-12-22 11:42] LABS: CHLORIDE,CL 102 mmol/L (98-107); SODIUM,NA 146 mmol/L (136-145)
[2020-12-22] MEDS: Levofloxacin/Dextrose 5%-Water 500 MG in Premix Bag 1 BAG IV SCH (12:07)
--- NOTE | 2020-12-22 12:12 | PCM.PN ---
- General Info Date of Service: 12/22/20 Admission Dx/Problem (Free Text): 1. Aspiration pneumonia 2. CHF 3. Confusion with probable CVA 4. COPD Subjective Update: Patient has been more awake today. Asking for water/coffee. Has not complained of pain or acute discomfort. Afebrile. Vital signs stable. Receiving O2 NC 4L. Functional Status: Reports: Pain Controlled, Other (unable to take oral meds/food/fluids. ) - Review of Systems General: Reports: Other (Decreased level of interaction/difficulty speaking/somnolent). Denies: Fever HEENT: Denies: Rhinitis Pulmonary: Denies: Cough, Sputum, Hemoptysis, Wheezing Gastrointestinal: Denies: Diarrhea, Vomiting Skin: Reports: Dryness. Denies: Mottled, Diaphoresis Psychiatric: Denies: Agitation Systems Review Comment:: Unable to perform formal ROS due to patient's current status. - Patient Data Vitals - Most Recent: Last Vital Signs Temp 36.7 C 12/22/20 08:00 Pulse 73 12/22/20 08:00 Resp 16 12/22/20 08:00 BP 128/56 L 12/22/20 08:00 Pulse Ox 91 L 12/22/20 08:00 Weight - Most Recent: 75.296 kg I&O - Last 24 Hours: Intake & Output 12/21/20 12/22/20 12/22/20 22:59 06:59 14:59 Intake Total 850 Output Total 325 200 Balance 525 -200 Lab Results Last 24 Hours: Laboratory Results - last 24 hr 12/22/20 12/22/20 12/22/20 Range/Units 11:20 11:20 11:20 WBC 8.0 (4.0-10.2) K/uL RBC 3.78 L (4.33-5.41) M/uL Hgb 11.9 L (13.1-16.8) g/dL Hct 39.2 (39.0-49.0) % MCV 103.7 H (84.0-98.0) fL MCH 31.5 (28.2-33.3) pg MCHC 30.4 L (31.7-36.0) g/dL RDW 13.5 (11.2-14.1) % Plt Count 181 (150-350) K/uL Neut % (Auto) 79.3 (45.0-80.0) % Lymph % (Auto) 12.9 (10.0-50.0) % Lyon % (Auto) 7.6 (2.0-14.0) % Eos % (Auto) 0.1 (0.0-5.0) % Baso % (Auto) 0.1 (0.0-2.0) % Neut # (Auto) 6.37 (1.40-7.00) K/uL Lymph # (Auto) 1.04 (0.50-3.50) K/uL Lyon # (Auto) 0.61 (0.00-1.00) K/uL Eos # (Auto) 0.01 (0.00-0.50) K/uL Baso # (Auto) 0.01 (0.00-0.20) K/uL Sodium 146 H (136-145) mmol/L Potassium 3.9 (3.5-5.1) mmol/L Chloride 102 (98-107) mmol/L Carbon Dioxide 41.0 H* (21.0-32.0) mmol/L BUN 49 H (7-18) mg/dL Creatinine 0.89 (0.51-1.17) mg/dL Est Cr Clr Drug Dosing 54.76 mL/min Estimated GFR (MDRD) > 60 mL/min Glucose 139 H (70-99) mg/dL Calcium 9.0 (8.5-10.1) mg/dL Total Bilirubin 0.3 (0.2-1.0) mg/dL AST 29 (15-37) U/L ALT 18 (12-78) U/L Alkaline Phosphatase 65 (46-116) IU/L Troponin I 0.060 H* (0.000-0.056) ng/mL Total Protein 6.2 L (6.4-8.2) g/dL Albumin 2.7 L (3.4-5.0) g/dL Vancomycin Trough 9.3 L (10-20) ug/mL Devin Results Last 24 Hours: Microbiology 12/19/20 04:45 Aerobic Blood Culture - Preliminary Blood - Venous - Lab Draw NO GROWTH AFTER 3 DAYS Anaerobic Blood Culture - Preliminary NO GROWTH AFTER 3 DAYS 12/19/20 04:45 Aerobic Blood Culture - Preliminary Blood - Venous NO GROWTH AFTER 3 DAYS Anaerobic Blood Culture - Preliminary NO GROWTH AFTER 3 DAYS 12/19/20 17:12 MRSA (PCR) - Final Nasal, Unspecified 12/19/20 08:00 Urine Culture - Final Urine, Catheterized NO GROWTH AFTER 2 DAYS Med Orders - Current: Current Medications Acetaminophen (Acetaminophen 650 Mg Supp) 650 mg RECTAL Q4H PRN PRN Reason: Fever Last Admin: 12/21/20 09:36 Dose: 650 mg Documented by: Albuterol (Albuterol 0.083% 2.5 Mg/3 Ml Neb Soln) 2.5 mg NEB Q2H PRN PRN Reason: Dyspnea Last Admin: 12/19/20 23:50 Dose: 2.5 mg Documented by: Albuterol/Ipratropium (Albuterol/Ipratropium 3.0-0.5 Mg/3 Ml Neb Soln) 3 ml NEB Q4HRRT PRN PRN Reason: Dyspnea Last Admin: 12/20/20 16:52 Dose: 3 ml Documented by: Albuterol/Ipratropium (Albuterol/Ipratropium 3.0-0.5 Mg/3 Ml Neb Soln) 3 ml NEB Q6HRRT REPLACED BY [facility] Last Admin: 12/22/20 10:08 Dose: 3 ml Documented by: Bisacodyl (Bisacodyl 10 Mg Supp) 10 mg RECTAL DAILY PRN PRN Reason: Constipation Enoxaparin Sodium (Enoxaparin 30 Mg/0.3 Ml Syringe) 30 mg SUBCUT Q24H REPLACED BY [facility] Last Admin: 12/21/20 11:47 Dose: 30 mg Documented by: Haloperidol Lactate (Haloperidol Lactate 5 Mg/Ml Sdv) 1 mg IVPUSH Q8H PRN PRN Reason: Agitation Last Admin: 12/20/20 21:56 Dose: 1 mg Documented by: Levofloxacin/Dextrose 500 mg/ (Premix) 100 mls @ 100 mls/hr IV Q24H REPLACED BY [facility] Last Admin: 12/21/20 10:28 Dose: 100 mls/hr Documented by: Metronidazole 500 mg/ Premix 100 mls @ 100 mls/hr IV Q8H REPLACED BY [facility] Last Admin: 12/22/20 10:10 Dose: 100 mls/hr Documented by: Vancomycin HCl 1 gm/ Sodium (Chloride) 250 mls @ 164.986 mls/hr IV Q12H REPLACED BY [facility] Ketorolac Tromethamine (Ketorolac 15 Mg/Ml Sdv) 15 mg IVPUSH Q6H PRN PRN Reason: Fever Lorazepam (Lorazepam 2 Mg/Ml Sdv) 1 mg IVPUSH Q2HR PRN PRN Reason: Agitation Last Admin: 12/20/20 19:25 Dose: 1 mg Documented by: Lorazepam (Lorazepam 2 Mg/Ml Sdv) 1 mg IVPUSH Q4H REPLACED BY [facility] Last Admin: 12/22/20 05:47 Dose: 1 mg Documented by: Methylprednisolone Sodium Succinate (Methylprednisolone Sodium Succinate 125 Mg/2 Ml Sdv) 125 mg IVPUSH DAILY REPLACED BY [facility] Last Admin: 12/22/20 10:01 Dose: 125 mg Documented by: Morphine Sulfate (Morphine 2 Mg/Ml Syringe) 2 mg .XX Q2H PRN PRN Reason: Dyspnea Last Admin: 12/20/20 19:24 Dose: 2 mg Documented by: Morphine Sulfate (Morphine 2 Mg/Ml Syringe) 2 mg IVPUSH Q4H REPLACED BY [facility] Last Admin: 12/22/20 10:01 Dose: 2 mg Documented by: Neomycin/Polymyxin/Bacitracin (Bacitracin/Neomycin/Polymyxin B Oint 0.9 Gm U/D Packet) 1 each TOP DAILY REPLACED BY [facility] Last Admin: 12/22/20 10:01 Dose: 1 each Documented by: Pantoprazole Sodium (Pantoprazole 40 Mg Vial) 40 mg IVPUSH Q12H REPLACED BY [facility] Last Admin: 12/22/20 10:02 Dose: 40 mg Documented by: Saliva Substitute (Saliva Substitute Oral [place] 120 Ml Bottle) 0 ml MUCMEM A SDIRECTED PRN PRN Reason: Dryness Sodium Chloride (Sodium Chloride 0.9% 10 Ml Syringe) 10 ml FLUSH ASDIRECTED PRN PRN Reason: Keep Vein Open Last Admin: 12/22/20 05:48 Dose: 10 ml Documented by: Sodium Chloride (Sodium Chloride 0.9% 10 Ml Syringe) 10 ml FLUSH Q12H REPLACED BY [facility] Last Admin: 12/22/20 10:09 Dose: 10 ml Documented by: Sodium Chloride (Sodium Chloride 0.9% Inhalation Soln 3 Ml Neb) 3 ml INH Q2H PRN PRN Reason: DYSPNEA Last Admin: 12/20/20 16:20 Dose: 3 ml Documented by: Triamcinolone Acetonide (Triamcinolone Acetonide 0.1% Crm 15 Gm Tube) 0 gm TOP TID PRN PRN Reason: Itching Vancomycin HCl (Pharmacy To Dose - Vancomycin) 1 dose .XX ASDIRECTED REPLACED BY [facility] Discontinued Medications Acetaminophen (Acetaminophen 325 Mg Tab) 650 mg PO Q4H PRN PRN Reason: Pain/Fever Furosemide (Furosemide 40 Mg/4 Ml Vial) 40 mg IVPUSH Q12H REPLACED BY [facility] Last Admin: 12/19/20 10:28 Dose: 40 mg Documented by: Furosemide (Furosemide 40 Mg/4 Ml Vial) 40 mg IVPUSH DAILY REPLACED BY [facility] Last Admin: 12/20/20 10:08 Dose: 40 mg Documented by: Guaifenesin/Dextromethorphan (Dextromethorphan/Guaifenesin 600-30 Mg Tab.Er) 1 tab PO BID REPLACED BY [facility] Last Admin: 12/19/20 18:07 Dose: Not Given Documented by: Haloperidol Lactate (Haloperidol Lactate 5 Mg/Ml Sdv) 1 mg IVPUSH ONETIME ONE Stop: 12/19/20 07:00 Last Admin: 12/19/20 07:16 Dose: 1 mg Documented by: Ceftriaxone Sodium 1 gm/ (Sodium Chloride) 100 mls @ 200 mls/hr IV ONETIME ONE Stop: 12/19/20 05:32 Last Admin: 12/19/20 05:10 Dose: 200 mls/hr Documented by: Ceftriaxone Sodium 1 gm/ (Sodium Chloride) 100 mls @ 200 mls/hr IV Q12H REPLACED BY [facility] Last Admin: 12/20/20 03:59 Dose: 200 mls/hr Documented by: Potassium Chloride/Dextrose/Sod Cl (D5 1/2 Ns W/ 20 Meq/L Kcl) 1,000 mls @ 75 mls/hr IV ASDIRECTED REPLACED BY [facility] Last Admin: 12/20/20 13:58 Dose: 75 mls/hr Documented by: Vancomycin HCl 1 gm/ Sodium (Chloride) 250 mls @ 164.986 mls/hr IV Q24H REPLACED BY [facility] Last Admin: 12/21/20 11:44 Dose: 164.986 mls/hr Documented by: Ketorolac Tromethamine (Ketorolac 30 Mg/Ml Sdv) 30 mg IVPUSH ONETIME ONE Stop: 12/20/20 17:27 Last Admin: 12/20/20 18:02 Dose: 30 mg Documented by: Lactobacillus Rhamnosus (Lactobacillus Rhamnosus Gg (Probiotic) Cap) 1 cap PO DAILY REPLACED BY [facility] Last Admin: 12/19/20 11:06 Dose: Not Given Documented by: Lorazepam (Lorazepam 2 Mg/Ml Sdv) 0.5 mg IVPUSH ONETIME ONE Stop: 12/19/20 05:26 Last Admin: 12/19/20 05:29 Dose: 0.5 mg Documented by: Lorazepam (Lorazepam 2 Mg/Ml Sdv) 1 mg IVPUSH ONETIME ONE Stop: 12/19/20 07:01 Last Admin: 12/19/20 07:15 Dose: 1 mg Documented by: Lorazepam (Lorazepam 1 Mg Tab) 1 mg PO QID REPLACED BY [facility] Last Admin: 12/19/20 19:44 Dose: Not Given Documented by: Methylprednisolone Sodium Succinate (Methylprednisolone Sodium Succinate 125 Mg/2 Ml Sdv) 125 mg IVPUSH ONETIME ONE Stop: 12/19/20 20:01 Last Admin: 12/19/20 21:29 Dose: 125 mg Documented by: Mirtazapine (Mirtazapine 30 Mg Tab) 30 mg PO BEDTIME REPLACED BY [facility] Last Admin: 12/19/20 19:45 Dose: Not Given Documented by: Polyethylene Glycol (Polyethylene Glycol 3350 Powder 17 Gm Packet) 17 gm PO Q2D REPLACED BY [facility] Last Admin: 12/19/20 11:06 Dose: Not Given Documented by: Potassium Chloride (Potassium Chloride 20 Meq Tab.Er) 20 meq PO BID REPLACED BY [facility] Last Admin: 12/19/20 18:07 Dose: Not Given Documented by: Prednisone (Prednisone 20 Mg Tab) 20 mg PO DAILY REPLACED BY [facility] Stop: 12/24/20 08:01 Senna (Sennosides 8.6 Mg Tab) 8.6 mg PO DAILY PRN PRN Reason: Constipation Sodium Chloride (Sodium Chloride 1 Gm Tab) 1 gm PO Q12HR REPLACED BY [facility] Last Admin: 12/19/20 19:45 Dose: Not Given Documented by: Sodium Chloride (Sodium Chloride 0.9% 10 Ml Syringe) 10 ml FLUSH Q12H REPLACED BY [facility] Last Admin: 12/19/20 11:07 Dose: Not Given Documented by: - Exam Quality Assessment: Supplemental Oxygen, DVT Prophylaxis General: No Acute Distress, Other (somnolent) HEENT: Pupils Equal (2mm) Neck: Supple Lungs: Decreased Breath Sounds (throughout), Other (mild increase in respiratory effort noted). No: Crackles, Rales, Rhonchi, Rub, Stridor, Wheezing Cardiovascular: Regular Rate, Regular Rhythm GI/Abdominal Exam: Soft, Non-Tender (Male) Exam: Deferred Back Exam: No: Muscle Spasm Extremities: Non-Tender, No Pedal Edema, Other (Heel protectors in place both lower limbs). No: Increased Warmth, Mottled, Pallor, Redness Skin: Warm, Dry, Other (several small scabs noted lower legs/no signs of infection) Neurological: Other (Patient able to squeeze with right hand when asked, less strong left hand. Able to wiggle toes equally both feet. Left corner mouth frank ops. Unable to open eyes on own. ) Psy/Mental Status: No: Agitated, Hallucinations - Patient Data Lab Results Last 24 hrs: Laboratory Results - last 24 hr 12/22/20 12/22/20 12/22/20 Range/Units 11:20 11:20 11:20 WBC 8.0 (4.0-10.2) K/uL RBC 3.78 L (4.33-5.41) M/uL Hgb 11.9 L (13.1-16.8) g/dL Hct 39.2 (39.0-49.0) % MCV 103.7 H (84.0-98.0) fL MCH 31.5 (28.2-33.3) pg MCHC 30.4 L (31.7-36.0) g/dL RDW 13.5 (11.2-14.1) % Plt Count 181 (150-350) K/uL Neut % (Auto) 79.3 (45.0-80.0) % Lymph % (Auto) 12.9 (10.0-50.0) % Lyon % (Auto) 7.6 (2.0-14.0) % Eos % (Auto) 0.1 (0.0-5.0) % Baso % (Auto) 0.1 (0.0-2.0) % Neut # (Auto) 6.37 (1.40-7.00) K/uL Lymph # (Auto) 1.04 (0.50-3.50) K/uL Lyon # (Auto) 0.61 (0.00-1.00) K/uL Eos # (Auto) 0.01 (0.00-0.50) K/uL Baso # (Auto) 0.01 (0.00-0.20) K/uL Sodium 146 H (136-145) mmol/L Potassium 3.9 (3.5-5.1) mmol/L Chloride 102 (98-107) mmol/L Carbon Dioxide 41.0 H* (21.0-32.0) mmol/L BUN 49 H (7-18) mg/dL Creatinine 0.89 (0.51-1.17) mg/dL Est Cr Clr Drug Dosing 54.76 mL/min Estimated GFR (MDRD) > 60 mL/min Glucose 139 H (70-99) mg/dL Calcium 9.0 (8.5-10.1) mg/dL Total Bilirubin 0.3 (0.2-1.0) mg/dL AST 29 (15-37) U/L ALT 18 (12-78) U/L Alkaline Phosphatase 65 (46-116) IU/L Troponin I 0.060 H* (0.000-0.056) ng/mL Total Protein 6.2 L (6.4-8.2) g/dL Albumin 2.7 L (3.4-5.0) g/dL Vancomycin Trough 9.3 L (10-20) ug/mL Result Diagrams: 12/22/20 11:20 12/22/20 11:20 Devin Results Last 24 hrs: Microbiology 12/19/20 04:45 Aerobic Blood Culture - Preliminary Blood - Venous - Lab Draw NO GROWTH AFTER 3 DAYS Anaerobic Blood Culture - Preliminary NO GROWTH AFTER 3 DAYS 12/19/20 04:45 Aerobic Blood Culture - Preliminary Blood - Venous NO GROWTH AFTER 3 DAYS Anaerobic Blood Culture - Preliminary NO GROWTH AFTER 3 DAYS 12/19/20 17:12 MRSA (PCR) - Final Nasal, Unspecified 12/19/20 08:00 Urine Culture - Final Urine, Catheterized NO GROWTH AFTER 2 DAYS Sepsis Event Note - Evaluation Sepsis Screening Result: No Definite Risk - Focused Exam Vital Signs: Vital Signs Temp Pulse Resp BP Pulse Ox 12/22/20 08:00 36.7 C 73 16 128/56 L 91 L - Problem List & Annotations (1) Pneumonia SNOMED Code(s): 743883846 Code(s): J18.9 - PNEUMONIA, UNSPECIFIED ORGANISM Status: Acute Priority: High Current Visit: Yes Onset Date: ~12/19/20 Qualifiers: Pneumonia type: due to unspecified organism Laterality: left Lung location: lower lobe of lung Qualified Code(s): J18.9 - Pneumonia, unspecified organism Annotation/Comment:: High fever has resolved. Continued O2 requirement. Aggres sive triple antibiotic therapy with Vanco/Levaquin/Flagyl initiated. Trough level 9.3. Note likely previous aspiration pneumonia with worsening left sided infiltrate noted on today's xray. Note previously suspected pneumonia prior to admission with previous IM Rocephin and oral doxycycline therapy. Additional IV Rocephin was initiated in the emergency room. Lactic acid has been normal throughout stay with no initial clinical evidence of sepsis. Unable to obtain a sputum specimen for culture and sensitivity. Prognosis is extremely guarded. (2) Need for comfort care SNOMED Code(s): 010984065, 094258336 Code(s): TNG9216 - Status: Acute Priority: High Current Visit: Yes Onset Date: 12/19/20 Annotation/Comment:: Possible transfer to hospice care in AM. Initially patient was a full code, however per request of the patient's daughter, November, the patient was placed on comfort care/NO CODE STATUS, including no further transfer to the [facility], etc. in the emergency room. The patient did become extremely agitated in the emergency room and did require IV Ativan and IV Haldol therapy, which was continued for patient safety and comfort after admission. Secondary to multiple healthcare issues as above his overall prognosis is extremely guarded with patient possibly not surviving this hospitalization. His daughters aware of this poor prognosis as above. (3) Confusion SNOMED Code(s): 123907408 Code(s): R41.0 - DISORIENTATION, UNSPECIFIED Status: Acute Priority: High Current Visit: Yes Onset Date: ~12/19/20 Annotation/Comment:: Confusion secondary either to recent CVA versus current infection or combination of both. Note negative CT scan of the head in the emergency room. Family suspects that patient also had CVA around [facility] as they noted left sided facial droop at that time and patient complaining of increased difficulty using left hand. Per his paulo ramírez's request no further work-up, including hospital transfer for MRI of the brain, etc.. Vitamin B12 level, TSH, were conducted on 12/20 with results as above. Prognosis extremely guarded. Negative UA. (4) CHF (congestive heart failure) SNOMED Code(s): 85223851 Code(s): I50.9 - HEART FAILURE, UNSPECIFIED Status: Acute Priority: High Current Visit: Yes Onset Date: 12/19/20 Qualifiers: Heart failure type: unspecified Heart failure chronicity: acute Qualified Code(s): I50.9 - Heart failure, unspecified Annotation/Comment:: The patient was not able to tolerate oral medications with oral potassium chloride discontinued. Lasix IV also has been discontinued for now as daughters are looking at comfort care and probable withdrawal of antibiotics in AM and placing patient on hospice care. BNP increased to 2604. Troponin remains elevated today. (5) CVA (cerebral vascular accident) SNOMED Code(s): 026494960 Code(s): I63.9 - CEREBRAL INFARCTION, UNSPECIFIED Status: Acute Priority: High Current Visit: Yes Qualifiers: CVA mechanism: unspecified Qualified Code(s): I63.9 - Cerebral infarction, unspecified Annotation/Comment:: Probable CVA about 1-2 weeks prior to patient's admission with progressive dysarthria, left-sided weakness, confusion, and aspiration. No further work-up per family's request as above. Prognosis poor. (6) Complete right bundle branch block SNOMED Code(s): 341837746 Code(s): I45.10 - UNSPECIFIED RIGHT BUNDLE-BRANCH BLOCK Status: Acute Priority: Medium Current Visit: Yes Onset Date: 12/20/20 Annotation/Comment:: Newly diagnosed. Observe for now. (7) Macrocytic anemia SNOMED Code(s): 72088058 Code(s): D53.9 - NUTRITIONAL ANEMIA, UNSPECIFIED Status: Acute Priority: High Current Visit: Yes Onset Date: ~12/19/20 Annotation/Comment:: Mild progressive anemia with no evidence of acute GI bleed. Note normal vitamin B12 level on 12/20 with newly diagnosed iron deficiency on 12/20. Observe for now with patient not able to take oral pills at this time. IV Protonix added as GI prophylaxis. (8) COPD, Moderate chronic obstructive pulmonary disease SNOMED Code(s): 639899687 Code(s): J44.9 - CHRONIC OBSTRUCTIVE PULMONARY DISEASE, UNSPECIFIED Status: Chronic Priority: High Current Visit: Yes Annotation/Comment:: Mild COPD exacerbation secondary to patient's current probable pneumonia as above. Patient was agitated and needed sedation and will likely not be able to tolerate inhaler therapy. Isolation precautions with initiation of DuoNeb nebulizer treatments, etc. His Pulmicort nebulizer treatments will be held for now secondary to previous high-dose oral steroids. Oral medications not tolerated early this hospitalization was changed to IV Solu-Medrol in order to avoid adrenal crisis from patient's previous high-dose oral therapy. Morphine nebulizer treatments were also added on a as needed basis for patient comfort, etc. on 12/20. His COVID-19 rapid test was negative, although minimize staff exposure to nebulizer therapy. Patient cannot perform incentive spirometry. The patient is steroid and O2 dependent with significant hypoxia on room air prior to patient's transfer and increased oxygen requirements early in this hospita lization. In spite of significant additional hypercapnia as per ABGs in the emergency room attempts to decrease his oxygen requirement at this time have been unsuccessful. - Problem List Review Problem List Initiated/Reviewed/Updated: Yes - My Orders Last 24 Hours: My Active Orders 12/21/20 19:10 Carboxymethylcellulose/Lytes [Ruben-Stir Oral [place]] 0 ml MUCMEM ASDIRECTED PRN 12/23/20 05:11 Chest 1V Frontal [CR] AM COMPREHENSIVE METABOLIC PN,CMP [CHEM] AM TROPONIN I [CHEM] AM 12/23/20 05:15 CBC WITH AUTO DIFF [HEME] AM - Assessment Assessment:: As above - Plan Plan:: As above. Extensive precautions were given to the patient's 2 daughters, who are in agreement with the treatment plan. Patient likely has combination of problems, including one or more recent CVAs, aspiration issues, left sided pneumonia, CHF. Has had elevated troponin yesterday and today, although today's level is improved compared to last level. No additional Haldol has been needed. He is using a few words/gestures today when interacting with staff and daughters but overall is noted to be sleeping. Unable to open eyes on own. Unable to safely take PO meds/foods/fluid. Is wanting water and is being given small amounts via oral sponge/swab. Poor overall prognosis. Daughters note that patient has visibly done downhill significantly in health/appearance since [place]. He will continue to receive antibiotics today. Family continues to lean towards placing patient on hospice care tomorrow and having him return to the [facility] home. If they change their mind and wish to continue treatment for the pneumonia, will need to look at PICC line placement so that treatment can be continued after discharge and patient will not be placed on hospice.
[2020-12-22] MEDS: Enoxaparin 30 MG/0.3 ML Syringe SUBCUT SCH (12:19)
[2020-12-22] MEDS ORDERED: Sodium Chloride 0.9% 500 ML IV SCH (16:00)
[2020-12-22] MEDS ORDERED: Ondansetron 4 MG/2 ML SDV IVPUSH PRN (20:09)
[2020-12-23] MEDS: Sodium Chloride 0.9% 10 ML Syringe FLUSH PRN ×2 (01:51→05:48)
[2020-12-23] MEDS: metroNIDAZOLE/Normal Saline 500 MG in Premix Bag 1 BAG IV SCH ×2 (01:51→13:50)
[2020-12-23] MEDS: LORazepam 2 MG/ML SDV IVPUSH SCH ×3 (01:52→12:15)
[2020-12-23] MEDS: Morphine 2 MG/ML SYRINGE IVPUSH SCH ×3 (01:52→09:50)
[2020-12-23] MEDS: Albuterol/Ipratropium 3.0-0.5 MG/3 ML Neb Soln NEB SCH ×2 (01:53→07:35)
[2020-12-23 07:35] VITALS: BP 126/54; PULSE 81
[2020-12-23] MEDS: Sodium Chloride 0.9% 10 ML Syringe FLUSH SCH (07:35)
[2020-12-23] MEDS: Bacitracin/Neomycin/Polymyxin B Oint 0.9 GM U/D Packet TOP SCH (07:35)
[2020-12-23] MEDS: methylPREDNISolone Sodium Succinate 125 MG/2 ML SDV IVPUSH SCH (07:35)
[2020-12-23 07:42] LABS: CHLORIDE,CL 107 mmol/L (98-107); SODIUM,NA 149 mmol/L (136-145)
--- NOTE | 2020-12-23 10:15 | PCM.DCSUM1 ---
Discharge Summary - Hospital Course Brief History: Patient admitted for further evaluation and treatment of confusion, fever, suspected pneumonia, CHF/COPD Diagnosis: Stroke: No - Discharge Data Discharge Date: 12/23/20 Discharge Disposition: DC/Tfer to Hospice-Med Fac 51 Condition: Poor - Referral to Home Health Primary Care Physician: BAKARI Epstein - Discharge Diagnosis/Problem(s) (1) Pneumonia SNOMED Code(s): 778248705 ICD Code: J18.9 - PNEUMONIA, UNSPECIFIED ORGANISM Status: Acute Priority: High Current Visit: Yes Onset Date: ~12/19/20 Problem Details: High fever resolved. WBC and lactic have been normal throughout stay. Progressive worsening of left lung noted on xray. Radiology suspects left lung collapse and feels that there is suspicion for additional underlying process such as a mass. Continued O2 requirement. Aggressive triple antibiotic therapy with Vanco/Levaquin/Flagyl during stay will be discontinued as patient is being discharged to hospice. Note likely previous aspiration pneumonia with worsening left sided infiltrate noted on initial xray. Note previously suspected pneumonia prior to admission with previous IM Rocephin and oral doxycycline therapy. Additional IV Rocephin was initiated in the emergency room. Unable to obtain a sputum specimen for culture and sensitivity. Qualifiers: Pneumonia type: due to unspecified organism Laterality: left Lung location: lower lobe of lung Qualified Code(s): J18.9 - Pneumonia, unspecified organism (2) Need for comfort care SNOMED Code(s): 399982837, 305716433 ICD Code: [id number] - Status: Acute Priority: High Current Visit: Yes Onset Date: 12/19/20 Problem Details: Discharge to Hospice care (3) Confusion SNOMED Code(s): 630816402 ICD Code: R41.0 - DISORIENTATION, UNSPECIFIED Status: Acute Priority: High Current Visit: Yes Onset Date: ~12/19/20 Problem Details: Confusion secondary either to recent CVA versus current infection or combination of both. Note negative CT scan of the head in the emergency room. Family suspects that patient also had CVA around [facility] as they noted left sided facial droop at that time and patient complaining of increased difficulty using left hand. Per his daughter's request no further work-up, including hospital transfer for MRI of the brain, etc.. (4) CHF (congestive heart failure) SNOMED Code(s): 76791280 ICD Code: I50.9 - HEART FAILURE, UNSPECIFIED Status: Acute Priority: High Current Visit: Yes Onset Date: 12/19/20 Problem Details: No additional intervention at this time as patient to be discharged to hospice Qualifiers: Heart failure type: unspecified Heart failure chronicity: acute Qualified Code(s): I50.9 - Heart failure, unspecified (5) CVA (cerebral vascular accident) SNOMED Code(s): 329579344 ICD Code: I63.9 - CEREBRAL INFARCTION, UNSPECIFIED Status: Acute Priority: High Current Visit: Yes Problem Details: Probable CVA about 1-4 weeks prior to patient's admission with progressive dysarthria, left-sided w eakness, confusion, and aspiration. No further work-up per family's request as above. Prognosis poor. Qualifiers: CVA mechanism: unspecified Qualified Code(s): I63.9 - Cerebral infarction, unspecified (6) Complete right bundle branch block SNOMED Code(s): 516719385 ICD Code: I45.10 - UNSPECIFIED RIGHT BUNDLE-BRANCH BLOCK Status: Acute Priority: Medium Current Visit: Yes Onset Date: 12/20/20 Problem Details: Newly diagnosed. Observe for now. (7) Macrocytic anemia SNOMED Code(s): 30695256 ICD Code: D53.9 - NUTRITIONAL ANEMIA, UNSPECIFIED Status: Acute Priority: High Current Visit: Yes Onset Date: ~12/19/20 Problem Details: Mild progressive anemia with no evidence of acute GI bleed. Note normal vitamin B12 level on 12/20 with newly diagnosed iron deficiency on 12/20. (8) COPD, Moderate chronic obstructive pulmonary disease SNOMED Code(s): 931854579 ICD Code: J44.9 - CHRONIC OBSTRUCTIVE PULMONARY DISEASE, UNSPECIFIED Status: Chronic Priority: High Current Visit: Yes Problem Details: Mild COPD exacerbation secondary to patient's current probable pneumonia as above. Patient was agitated and needed sedation and will likely not be able to tolerate inhaler therapy. Isolation precautions with initiation of DuoNeb nebulizer treatments, etc. His Pulmicort nebulizer treatments will be held for now secondary to previous high-dose oral steroids. Oral medications not tolerated early this hospitalization was changed to IV Solu-Medrol in order to avoid adrenal crisis from patient's previous high-dose oral therapy. Morphine nebulizer treatments were also added on a as needed basis for patient comfort, etc. on 12/20. His COVID-19 rapid test was negative, although minimize staff exposure to nebulizer therapy. Patient cannot perform incentive spirometry. The patient is steroid and O2 dependent with significant hypoxia on room air prior to patient's transfer and increased oxygen requirements early in this hospitalization. In spite of significant additional hypercapnia as per ABGs in the emergency room attempts to decrease his oxygen requirement at this time have been unsuccessful. - Patient Summary/Data Consults: Consultations 12/20/20 09:15 Consult to Hospice [CONS] Routine Hospital Course: Patient received aggressive treatment with antibiotics. Also needed Haldol initially to assist with agitation when first admitted. Fever improved. No elevation of WBC or lactic acid noted throughout stay. Patient became more responsive towards midpoint of stay. Garbled speech at times but able to often make self be understood. No complaint of pain. Requested coffee and water. Would say he was hungry but would not swallow when offered small amounts of applesauce. Continued to require O2 via NC. Asked repeatedly to go home. Noted to have progressive worsening of left lung field on xray despite treatment. Radiology recommended chest CT/Pulmonology consult as patient may have mass causing the current observed changes. Given the progressive decline in patient's overall health since [place], particularly over the last month, and inability to take PO, family has decided to have patient discharged to Hospice today. Patient was asked what he wanted, either continued medical treatment with antibiotics/additional testing vs being kept comfortable on hospice. Patient clearly said "comfortable". Antibiotics discontinued today. Hospice representatives have met with the patient's two daughters that have been staying in the room with him. [facility] will accept his transfer back to their facility today where Hospice will take over his care. - Patient Instructions Diet: Clear Liquid Diet (see what patient can tolerate/is willing to take PO) Activity: As Tolerated Other/Special Instructions: Consult to Hospice. Hospice to assume patient's care. - Discharge Plan *PRESCRIPTION DRUG MONITORING PROGRAM REVIEWED*: Not Applicable *COPY OF PRESCRIPTION DRUG MONITORING REPORT IN PATIENT VIKRAM: Not Applicable Home Medications: Home Meds Budesonide [Pulmicort] 0.5 mg NEB Q4HR 12/19/20 [History] Morphine [Morphine 20 MG/ML Soln] 5 mg BUCCAL TID 12/19/20 [History] Morphine [Morphine 20 MG/ML Soln] 5 mg PO Q30M PRN 12/19/20 [History] Sodium Phosphate,Evans-Dibasic [Enema Ready To Use] 133 ml RC DAILY PRN 12/19/20 [History] Triamcinolone Acetonide [Triamcinolone Acetonide 0.1% Crm] 1 applic TOP TID PRN 12/19/20 [History] Acetaminophen [Tylenol] 650 mg RECTAL Q4H PRN #0 supp 12/23/20 [Rx] Albuterol [Proventil Neb Soln] 2.5 mg NEB Q2H PRN neb 12/23/20 [Rx] Carboxymethylcellulose/Lytes [Ruben-Stir Oral Glasgow] 0 ml MUCMEM ASDIRECTED PRN bottle 12/23/20 [Rx] Sodium Chloride 0.9% 3 ml INH Q2H PRN neb 12/23/20 [Rx] Triamcinolone Acetonide [Triamcinolone Acetonide 0.1% Crm] 0 gm TOP TID PRN tube 12/23/20 [Rx] Forms: ED Department Discharge Referrals: Ev Barbosa PA [Primary Care Provider] - - Discharge Summary/Plan Comment DC Time >30 min.: No - General Info Date of Service: 12/23/20 Admission Dx/Problem (Free Text: 1. Aspiration pneumonia/hypoxemia 2. CHF 3. Confusion with probable recent CVA 4. COPD Subjective Update: Patient not complaining of pain/no somatic complaints. Periodically wants water/coffee. Says he is hungry. Spends most time sleeping. Functional Status: Reports: Pain Controlled. Denies: Tolerating Diet, Amb ulating, New Symptoms, Incentive Spirometry Numeric/FACES Score: 0 - Review of Systems General: Reports: Weakness, Fatigue. Denies: Fever, Chills, Night Sweats HEENT: Reports: Other (no acute changes) Pulmonary: Reports: Other (hypoxemia). Denies: Pleuritic Chest Pain, Cough, Sputum, Hemoptysis, Wheezing Cardiovascular: Denies: Chest Pain, Palpitations, Edema, Lightheadedness Gastrointestinal: Reports: Decreased Appetite, Difficulty Swallowing. Denies: Abdominal Pain, Constipation, Diarrhea, Hematochezia, Nausea, Vomiting Genitourinary: Denies: Hematuria, Flank Pain Musculoskeletal: Reports: Other (no acute complaints/changes) Skin: Reports: Other (dry skin extremities/several scabs) Neurological: Reports: Trouble Speaking, Difficulty Walking, Weakness, Other (left sided facial droop/left arm and hand weakness for several weeks up to one month). Denies: Headache, Seizure Psychiatric: Denies: Hallucinations - Patient Data Vitals - Most Recent: Last Vital Signs Temp 37.1 C 12/23/20 07:34 Pulse 81 12/23/20 07:34 Resp 19 12/23/20 07:34 BP 126/54 L 12/23/20 07:34 Pulse Ox 91 L 12/23/20 07:34 Weight - Most Recent: 75.296 kg I&O - Last 24 hours: Intake & Output 12/22/20 12/23/20 12/23/20 22:59 06:59 14:59 Intake Total 350 Output Total 275 400 Balance 75 -400 Lab Results - Last 24 hrs: Laboratory Results - last 24 hr 12/22/20 12/22/20 12/22/20 Range/Units 11:20 11:20 11:20 WBC 8.0 (4.0-10.2) K/uL RBC 3.78 L (4.33-5.41) M/uL Hgb 11.9 L (13.1-16.8) g/dL Hct 39.2 (39.0-49.0) % MCV 103.7 H (84.0-98.0) fL MCH 31.5 (28.2-33.3) pg MCHC 30.4 L (31.7-36.0) g/dL RDW 13.5 (11.2-14.1) % Plt Count 181 (150-350) K/uL Neut % (Auto) 79.3 (45.0-80.0) % Lymph % (Auto) 12.9 (10.0-50.0) % Evans % (Auto) 7.6 (2.0-14.0) % Eos % (Auto) 0.1 (0.0-5.0) % Baso % (Auto) 0.1 (0.0-2.0) % Neut # (Auto) 6.37 (1.40-7.00) K/uL Lymph # (Auto) 1.04 (0.50-3.50) K/uL Evans # (Auto) 0.61 (0.00-1.00) K/uL Eos # (Auto) 0.01 (0.00-0.50) K/uL Baso # (Auto) 0.01 (0.00-0.20) K/uL Sodium 146 H (136-145) mmol/L Potassium 3.9 (3.5-5.1) mmol/L Chloride 102 (98-107) mmol/L Carbon Dioxide 41.0 H* (21.0-32.0) mmol/L BUN 49 H (7-18) mg/dL Creatinine 0.89 (0.51-1.17) mg/dL Est Cr Clr Drug Dosing 54.76 mL/min Estimated GFR (MDRD) > 60 mL/min Glucose 139 H (70-99) mg/dL Calcium 9.0 (8.5-10.1) mg/dL Magnesium (1.8-2.4) mg/dL Total Bilirubin 0.3 (0.2-1.0) mg/dL AST 29 (15-37) U/L ALT 18 (12-78) U/L Alkaline Phosphatase 65 (46-116) IU/L Troponin I 0.060 H* (0.000-0.056) ng/mL NT-Pro-B Natriuret Pep (0-125) pg/mL Total Protein 6.2 L (6.4-8.2) g/dL Albumin 2.7 L (3.4-5.0) g/dL Vancomycin Trough 9.3 L (10-20) ug/mL 12/23/20 12/23/20 12/23/20 Range/Units 07:15 07:15 07:15 WBC 6.1 (4.0-10.2) K/uL RBC 3.62 L (4.33-5.41) M/uL Hgb 11.4 L (13.1-16.8) g/dL Hct 38.1 L (39.0-49.0) % MCV 105.2 H (84.0-98.0) fL MCH 31.5 (28.2-33.3) pg MCHC 29.9 L (31.7-36.0) g/dL RDW 13.6 (11.2-14.1) % Plt Count 171 (150-350) K/uL Neut % (Auto) 84.6 H (45.0-80.0) % Lymph % (Auto) 7.4 L (10.0-50.0) % Evans % (Auto) 7.8 (2.0-14.0) % Eos % (Auto) 0.0 (0.0-5.0) % Baso % (Auto) 0.2 (0.0-2.0) % Neut # (Auto) 5.18 (1.40-7.00) K/uL Lymph # (Auto) 0.45 L (0.50-3.50) K/uL Evans # (Auto) 0.48 (0.00-1.00) K/uL Eos # (Auto) 0.00 (0.00-0.50) K/uL Baso # (Auto) 0.01 (0.00-0.20) K/uL Sodium 149 H (136-145) mmol/L Potassium 4.2 (3.5-5.1) mmol/L Chloride 107 (98-107) mmol/L Carbon Dioxide 40.7 H* (21.0-32.0) mmol/L BUN 50 H (7-18) mg/dL Creatinine 0.83 (0.51-1.17) mg/dL Est Cr Clr Drug Dosing 58.72 mL/min Estimated GFR (MDRD) > 60 mL/min Glucose 155 H (70-99) mg/dL Calcium 8.8 (8.5-10.1) mg/dL Magnesium 2.3 (1.8-2.4) mg/dL Total Bilirubin 0.3 (0.2-1.0) mg/dL AST 23 (15-37) U/L ALT 16 (12-78) U/L Alkaline Phosphatase 56 (46-116) IU/L Troponin I 0.044 (0.000-0.056) ng/mL NT-Pro-B Natriuret Pep 904 H (0-125) pg/mL Total Protein 5.7 L (6.4-8.2) g/dL Albumin 2.5 L (3.4-5.0) g/dL Vancomycin Trough (10-20) ug/mL JIGNESH Results - Last 24 hrs: Microbiology 12/19/20 04:45 Aerobic Blood Culture - Preliminary Blood - Venous - Lab Draw NO GROWTH AFTER 4 DAYS Anaerobic Blood Culture - Preliminary NO GROWTH AFTER 4 DAYS 12/19/20 04:45 Aerobic Blood Culture - Preliminary Blood - Venous NO GROWTH AFTER 4 DAYS Anaerobic Blood Culture - Preliminary NO GROWTH AFTER 4 DAYS Med Orders - Current: Current Medications Acetaminophen (Acetaminophen 650 Mg Supp) 650 mg RECTAL Q4H PRN PRN Reason: Fever Last Admin: 12/21/20 09:36 Dose: 650 mg Documented by: Albuterol (Albuterol 0.083% 2.5 Mg/3 Ml Neb Soln) 2.5 mg NEB Q2H PRN PRN Reason: Dyspnea Last Admin: 12/19/20 23:50 Dose: 2.5 mg Documented by: Albuterol/Ipratropium (Albuterol/Ipratropium 3.0-0.5 Mg/3 Ml Neb Soln) 3 ml NEB Q4HRRT PRN PRN Reason: Dyspnea Last Admin: 12/20/20 16:52 Dose: 3 ml Documented by: Albuterol/Ipratropium (Albuterol/Ipratropium 3.0-0.5 Mg/3 Ml Neb Soln) 3 ml NEB Q6HRRT [facility] Last Admin: 12/23/20 07:35 Dose: 3 ml Documented by: Bisacodyl (Bisacodyl 10 Mg Supp) 10 mg RECTAL DAILY PRN PRN Reason: Constipation Enoxaparin Sodium (Enoxaparin 30 Mg/0.3 Ml Syringe) 30 mg SUBCUT Q24H [facility] Last Admin: 12/22/20 12:19 Dose: 30 mg Documented by: Haloperidol Lactate (Haloperidol Lactate 5 Mg/Ml Sdv) 1 mg IVPUSH Q8H PRN PRN Reason: Agitation Last Admin: 12/20/20 21:56 Dose: 1 mg Documented by: Levofloxacin/Dextrose 500 mg/ (Premix) 100 mls @ 100 mls/hr IV Q24H [facility] Last Admin: 12/22/20 12:07 Dose: Not Given Documented by: Metronidazole 500 mg/ Premix 100 mls @ 100 mls/hr IV Q8H [facility] Last Admin: 12/23/20 01:51 Dose: 100 mls/hr Documented by: Vancomycin HCl 1 gm/ Sodium (Chloride) 250 mls @ 164.986 mls/hr IV Q12H [facility] Last Admin: 12/23/20 00:22 Dose: 164.986 mls/hr Documented by: Ketorolac Tromethamine (Ketorolac 15 Mg/Ml Sdv) 15 mg IVPUSH Q6H PRN PRN Reason: Fever Lorazepam (Lorazepam 2 Mg/Ml Sdv) 1 mg IVPUSH Q2HR PRN PRN Reason: Agitation Last Admin: 12/20/20 19:25 Dose: 1 mg Documented by: Lorazepam (Lorazepam 2 Mg/Ml Sdv) 1 mg IVPUSH Q4H [facility] Last Admin: 12/23/20 05:49 Dose: Not Given Documented by: Methylprednisolone Sodium Succinate (Methylprednisolone Sodium Succinate 125 Mg/2 Ml Sdv) 125 mg IVPUSH DAILY [facility] Last Admin: 12/23/20 07:35 Dose: 125 mg Documented by: Morphine Sulfate (Morphine 2 Mg/Ml Syringe) 2 mg .XX Q2H PRN PRN Reason: Dyspnea Last Admin: 12/20/20 19:24 Dose: 2 mg Documented by: Morphine Sulfate (Morphine 2 Mg/Ml Syringe) 2 mg IVPUSH Q4H [facility] Last Admin: 12/23/20 09:50 Dose: 2 mg Documented by: Neomycin/Polymyxin/Bacitracin (Bacitracin/Neomycin/Polymyxin B Oint 0.9 Gm U/D Packet) 1 each TOP DAILY [facility] Last Admin: 12/23/20 07:35 Dose: 1 each Documented by: Ondansetron HCl (Ondansetron 4 Mg/2 Ml Sdv) 4 mg IVPUSH Q4H PRN PRN Reason: Nausea/Vomiting Last Admin: 12/22/20 20:24 Dose: 4 mg Documented by: Pantoprazole Sodium (Pantoprazole 40 Mg Vial) 40 mg IVPUSH Q12H [facility] Last Admin: 12/22/20 21:36 Dose: 40 mg Documented by: Saliva Substitute (Saliva Substitute Oral Glasgow 120 Ml Bottle) 0 ml MUCMEM ASDIRECTED PRN PRN Reason: Dryness Last Admin: 12/22/20 12:19 Dose: 1 spray Documented by: Sodium Chloride (Sodium Chloride 0.9% 10 Ml Syringe) 10 ml FLUSH ASDIRECTED PRN PRN Reason: Keep Vein Open Last Admin: 12/23/20 05:48 Dose: 10 ml Documented by: Sodium Chloride (Sodium Chloride 0.9% 10 Ml Syringe) 10 ml FLUSH Q12H [facility] Last Admin: 12/23/20 07:35 Dose: 10 ml Documented by: Sodium Chloride (Sodium Chloride 0.9% Inhalation Soln 3 Ml Neb) 3 ml INH Q2H PRN PRN Reason: DYSPNEA Last Admin: 12/20/20 16:20 Dose: 3 ml Documented by: Triamcinolone Acetonide (Triamcinolone Acetonide 0.1% Crm 15 Gm Tube) 0 gm TOP TID PRN PRN Reason: Itching Vancomycin HCl (Pharmacy To Dose - Vancomycin) 1 dose .XX ASDIRECTED [facility] Discontinued Medications Acetaminophen (Acetaminophen 325 Mg Tab) 650 mg PO Q4H PRN PRN Reason: Pain/Fever Furosemide (Furosemide 40 Mg/4 Ml Vial) 40 mg IVPUSH Q12H [facility] Last Admin: 12/19/20 10:28 Dose: 40 mg Documented by: Furosemide (Furosemide 40 Mg/4 Ml Vial) 40 mg IVPUSH DAILY [facility] Last Admin: 12/20/20 10:08 Dose: 40 mg Documented by: Guaifenesin/Dextromethorphan (Dextromethorphan/Guaifenesin 600-30 Mg Tab.Er) 1 tab PO BID [facility] Last Admin: 12/19/20 18:07 Dose: Not Given Documented by: Haloperidol Lactate (Haloperidol Lactate 5 Mg/Ml Sdv) 1 mg IVPUSH ONETIME ONE Stop: 12/19/20 07:00 Last Admin: 12/19/20 07:16 Dose: 1 mg Documented by: Ceftriaxone Sodium 1 gm/ (Sodium Chloride) 100 mls @ 200 mls/hr IV ONETIME ONE Stop: 12/19/20 05:32 Last Admin: 12/19/20 05:10 Dose: 200 mls/hr Documented by: Ceftriaxone Sodium 1 gm/ (Sodium Chloride) 100 mls @ 200 mls/hr IV Q12H [facility] Last Admin: 12/20/20 03:59 Dose: 200 mls/hr Documented by: Potassium Chloride/Dextrose/Sod Cl (D5 1/2 Ns W/ 20 Meq/L Kcl) 1,000 mls @ 75 mls/hr IV ASDIRECTED [facility] Last Admin: 12/20/20 13:58 Dose: 75 mls/hr Documented by: Vancomycin HCl 1 gm/ Sodium (Chloride) 250 mls @ 164.986 mls/hr IV Q24H [facility] Last Admin: 12/22/20 12:20 Dose: 164.986 mls/hr Documented by: Sodium Chloride (Normal Saline) 500 mls @ 100 mls/hr IV ASDIRECTED [facility] Last Admin: 12/22/20 20:24 Dose: 100 mls/hr Documented by: Ketorolac Tromethamine (Ketorolac 30 Mg/Ml Sdv) 30 mg IVPUSH ONETIME ONE Stop: 12/20/20 17:27 Last Admin: 12/20/20 18:02 Dose: 30 mg Documented by: Lactobacillus Rhamnosus (Lactobacillus Rhamnosus Gg (Probiotic) Cap) 1 cap PO DAILY [facility] Last Admin: 12/19/20 11:06 Dose: Not Given Documented by: Lorazepam (Lorazepam 2 Mg/Ml Sdv) 0.5 mg IVPUSH ONETIME ONE Stop: 12/19/20 05:26 Last Admin: 12/19/20 05:29 Dose: 0.5 mg Documented by: Lorazepam (Lorazepam 2 Mg/Ml Sdv) 1 mg IVPUSH ONETIME ONE Stop: 12/19/20 07:01 Last Admin: 12/19/20 07:15 Dose: 1 mg Documented by: Lorazepam (Lorazepam 1 Mg Tab) 1 mg PO QID [facility] Last Admin: 12/19/20 19:44 Dose: Not Given Documented by: Methylprednisolone Sodium Succinate (Methylprednisolone Sodium Succinate 125 Mg/2 Ml Sdv) 125 mg IVPUSH ONETIME ONE Stop: 12/19/20 20:01 Last Admin: 12/19/20 21:29 Dose: 125 mg Documented by: Mirtazapine (Mirtazapine 30 Mg Tab) 30 mg PO BEDTIME [facility] Last Admin: 12/19/20 19:45 Dose: Not Given Documented by: Polyethylene Glycol (Polyethylene Glycol 3350 Powder 17 Gm Packet) 17 gm PO Q2D [facility] Last Admin: 12/19/20 11:06 Dose: Not Given Documented by: Potassium Chloride (Potassium Chloride 20 Meq Tab.Er) 20 meq PO BID [facility] Last Admin: 12/19/20 18:07 Dose: Not Given Documented by: Prednisone (Prednisone 20 Mg Tab) 20 mg PO DAILY [facility] Stop: 12/24/20 08:01 Senna (Sennosides 8.6 Mg Tab) 8.6 mg PO DAILY PRN PRN Reason: Constipation Sodium Chloride (Sodium Chloride 1 Gm Tab) 1 gm PO Q12HR [facility] Last Admin: 12/19/20 19:45 Dose: Not Given Documented by: Sodium Chloride (Sodium Chloride 0.9% 10 Ml Syringe) 10 ml FLUSH Q12H [facility] Last Admin: 12/19/20 11:07 Dose: Not Given Documented by: - Exam Quality Assessment: Reports: Supplemental Oxygen, Urine Catheter, DVT Prophylaxis General: Reports: Other (sleeping but arousable. Answers questions using a few words, simple yes/no) HEENT: Reports: Other (pupils equal, 2mm) Neck: Reports: Trachea Midline. Denies: Lymphadenopathy, JVD Lungs: Reports: Clear to Auscultation, Decreased Breath Sounds (bilaterally), Other (mild use accessory muscles for breathing). Denies: Crackles, Rales, Rhonchi, Rub, Stridor, Wheezing Cardiovascular: Reports: Regular Rate, Regular Rhythm, No Murmurs GI/Abdominal Exam: Soft, Non-Tender, Abnormal Bowel Sounds (diminished throughout) (Male) Exam: Deferred Rectal (Males) Exam: Deferred Back Exam: Denies: CVA Tenderness (L), CVA Tenderness (R), Muscle Spasm Extremities: Non-Tender, Other (heel protectors in place, skin dry, several scabs noted lower legs/feet/toes. No evidence of infection. Continues to have good cap refill overall. ). No: Increased Warmth, Mottled, Pallor, Redness Neurological: Reports: No New Focal Deficit, Other (droop left corner mouth, decreased head of physics strength left hand. ) Psy/Mental Status: Denies: Hallucinations
[2020-12-23] MEDS: Pantoprazole 40 MG Vial IVPUSH SCH (13:50)
[2020-12-23] MEDS: Levofloxacin/Dextrose 5%-Water 500 MG in Premix Bag 1 BAG IV SCH (13:50)
== END 2020-12-23 12:10 | disposition hospice, inpatient (51) | DRG 177 ==
LOC: LL.ED 04:13 → LL.MS 08:08
PROVIDERS: ADMIT Family Medicine; ATTEND Family Medicine
DX: J69.0 Pneumonitis due to inhalation of food and vomit (principal); J44.9 Chronic obstructive pulmonary disease, unspecified; R41.0 Disorientation, unspecified; D64.9 Anemia, unspecified; J96.21 Acute and chronic respiratory failure with hypoxia; Z99.81 Dependence on supplemental oxygen; Z79.51 Long term (current) use of inhaled steroids; J96.22 Acute and chronic respiratory failure with hypercapnia; J44.0 Chronic obstructive pulmonary disease with (acute) lower respiratory infection; Z20.822 Contact with and (suspected) exposure to COVID-19; J44.1 Chronic obstructive pulmonary disease with (acute) exacerbation; I50.9 Heart failure, unspecified; I45.10 Unspecified right bundle-branch block; D53.9 Nutritional anemia, unspecified; D50.9 Iron deficiency anemia, unspecified; R91.8 Other nonspecific abnormal finding of lung field; R47.1 Dysarthria and anarthria; R29.810 Facial weakness; Z79.899 Other long term (current) drug therapy; Z79.52 Long term (current) use of systemic steroids; Z86.73 Personal history of transient ischemic attack (TIA), and cerebral infarction without residual deficits
CPT/HCPCS: 36415; 36600; 51702; 70450; 71045; 80048; 80053; 80202; 81001; 82272; 82550; 82553; 82607; 82803; 83540; 83550; 83605; 83735; 83880; 84443; 84484; 85025; 85610; 86140; 87040; 87086; 87641; 87804; 93005; 94640; 96365; 96375; 96376; 99223; 99232; 99233; 99238; 99285-25; A9270-GY; C9113; J0696; J1630; J1650; J1885; J1940; J1956; J2060; J2270; J2405; J2930; J3370; J3480; J3490; J7040; J7050; J7613-GY; J7620-GY; U0002